=== PATIENT | female | born 1930 | race Caucasian/White ===

== ENCOUNTER 2016-09-13 12:35 | Inpatient (IN) ==
--- NOTE | 2016-09-13 12:47 | Emergency Department Report ---
Asthma HPI - General Stated Complaint: SOA <Mario Arevalo Q - 09/14/16 18:33> Time Seen by Provider: 09/13/16 12:45 <Mario Arevalo - 09/14/16 18:33> Source: patient, EMS <Indy Ramsey - 09/13/16 15:29> - History of Present Illness HPI Narrative: 85-year-old female brought to ER via EMS from [facility] at [facility]. Patient was brought to for SpO2 of 87% per EMS. Patient was started on 4L oxygen per [place] by EMS. O2 was decreased to 2L in ED. Patient states the reason she called EMS is that she stopped taking her warfarin on Tuesday due to a nosebleed. Patient states her INR on Tuesday of last week was 3.9. Patient denies feeling short of air, chest pain nausea or diaphoresis. Patient is in atrial fibrillation with RVR on arrival. Patient denies any history of atrial fibrillation. <Indy Ramsey - 09/14/16 14:10> MD complaint: other (hypoxia) <Indy Ramsey - 09/14/16 14:10> - Related Data Home Medications Medication Instructions Recorded Confirmed Alendronate Sodium 70 mg PO WEEKLY 09/13/16 09/13/16 Diclofenac [Voltaren] 1 applic TOP PRN PRN 09/13/16 09/13/16 Furosemide [Lasix] 20 mg PO AM 09/13/16 09/13/16 Gabapentin 300 mg PO HS 09/13/16 09/13/16 Metoprolol Tartrate [Lopressor] 25 mg PO WB 09/13/16 09/13/16 Potassium Chloride [Klor-Con M20] 20 meq PO DAILY 09/13/16 09/13/16 Warfarin [Coumadin] 2 mg PO NOON 09/13/16 09/13/16 <Mario Arevalo - 09/14/16 18:33> Allergies Allergy/AdvReac Type Severity Reaction Status Date / Time No Known Allergies Allergy Unknown Unverified 09/13/16 17:01 <Mario Arevalo - 09/14/16 18:33> Review of Systems All systems: reviewed and negative except as stated <Indy Ramsey - 15:29> Respiratory: Reports: other (hypoxia and ) <Indy Ramsey - 08/08/17 14:10> PFSH Patient Stated Medical History Cardiac Arrhythmia Yes: A-FIB Congestive Heart Failure Yes Other Musculoskeletal Yes: CHRONIC KNEE PAIN <Mario Arevalo 09/14/16 18:33> Patient Stated Medical History Cardiac Arrhythmia Yes: A-FIB Congestive Heart Failure Yes Other Musculoskeletal Yes: CHRONIC KNEE PAIN Atrial fibrillation Systolic heart failure chronic Essential hypertension 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 Hysterectomy <Indy Ramsey 09/14/16 14 :20> - Social History Smoking status: Former smoker <Indy Ramsey 09/14/16 14:20> Housing: other (independent living) <Indy Ramsey 09/14/16 14:20> Current occupational status: retired <Indy Ramsey 09/14/16 14:20> Physical Exam - Limitations Limitations: no limitations <Indy Ramsey 09/13/16 15:29> - General General appearance: alert, in no apparent distress <Indy Ramsey 15:29> - Normal Exams: Head:: Normocephalic without trauma <Indy Ramsey 09/13/16 15:29> Eyes:: No scleral icterus, irritation <Indy Ramsey 09/13/16 15:29> ENMT:: No facial trauma, nasal exudates, pharyngeal erythema <Indy Ramsey 09/13/16 15:29> Abdomen:: Bowel sounds positive, soft, non-tender, non-distended <Indy Ramsey 09/13/16 15:29> Musculoskeletal:: No tenderness, all extremities <Indy Ramsey 09/14/16 14:20> Neurological:: Patient is alert, and oriented, cranial nerves, motor/sensory/ cerebellar, exams w/o gross deficits, to observation <Indy Ramsey 09/13 15:29> Psychiatric:: Patient exhibits, appropriate attention <Indy Ramsey 08/23 15:29> - Neck Neck exam: Present: trachea midline <Indy Ramsey 09/13/16 15:29> - Respiratory Respiratory exam: Present: other (RR 40 on arrival from EMS) <Indy Ramsey - 09/13/16 16:13> - Expanded Respiratory Exam Location: Left: rales (clear in upper lobes), Right: rales, Lower: rales < Indy Ramsey - 09/14/16 14:20> - Cardiovascular Cardiovascular exam: Present: other (regular-irregular with HR in 130s) < Indy Ramsey - 09/14/16 14:20> Course - Consultations Consultation #1: I discussed patient's HPI, PMH, labs, EKG, CXR, VS, exam findings and treatment in ED with Dr. Robison. Dr. Robison will accept inpatient. <Indy Ramsey - 09/14/16 14:20> Vital Signs Temperature 97.9 F 09/13/16 12:38 Pulse Rate 133 H 09/13/16 12:38 Respiratory Rate 38 H 09/13/16 12:38 Blood Pressure 99/65 09/13/16 12:38 Pulse Oximetry 89 L 09/13/16 12:38 Temperature 96.8 F 09/14/16 16:00 Pulse Rate 90 09/14/16 16:00 Respiratory Rate 18 09/14/16 16:43 Blood Pressure 88/54 09/14/16 16:00 Pulse Oximetry 96 09/14/16 16:43 <Mario Arevalo Q - 09/14/16 18:33> Vital Signs Temperature 97.9 F 09/13/16 12:38 Pulse Rate 133 H 09/13/16 12:38 Respiratory Rate 38 H 09/13/16 12:38 Blood Pressure 99/65 09/13/16 12:38 Pulse Oximetry 89 L 09/13/16 12:38 Temperature 96.8 F 09/14/16 16:00 Pulse Rate 90 09/14/16 16:00 Respiratory Rate 18 09/14/16 16:43 Blood Pressure 88/54 09/14/16 16:00 Pulse Oximetry 96 09/14/16 16:43 <Indy Ramsey Mendez - 09/14/16 14:20> Dyspnea - MDM Narrative Medical decision making narrative: WBC 53.1, lymph 61.5, (hx. of chronic lymphoid leukemia). Potassium 6.6 BUN 82 and creatinine 2.0 (no previous labs to compare) Troponin 0.193 ProBNP 52,100 AST 150 ALT 183 Lactate 2.1 Pro calcitonin 2.91 Patient was given 10mg IV of cardizem due to low BP and heart rate. Patient did have improvement of heart rate with improvement of BP. Patient was treated with seem carbonate, insulin and D50 for hyperkalemia in ER. Patient is admitted to hospitalist service improved for hyperkalemia with multiple abnormal laboratories. <Indy Ramsey - 09/14/16 14:20> - Differential Diagnosis Differential diagnosis: Likely: PE, Pneumonia, Pulmonary edema systolic, Pulmonary edema dystolic <RamseyIndy - 09/13/16 15:42> - Medical Records Attestation: I reviewed the patient's medical records. <Indy Ramsey - 08/23 15:42> PMR sent form Dr. Valles office. <RamseyIndy - 09/13/16 15:42> - Lab Data Attestation: I reviewed the patient's lab results. <Indy Ramsey - 15:11> Result diagrams: 09/14/16 04:39 09/14/16 14:58 <Mario Arevalo Q - 09/14/16 18:33> Lab Results 09/13/16 09/13/16 09/13/16 Range/Units 13:15 13:15 13:16 WBC 53.1 H* (4.5-11.0) T/MM3 RBC 4.01 (4.00-5.20) M/MM3 Hgb 13.5 (12-16) GM/DL Hct 40.5 (36-46) % MCV 101.0 H (80-100) UM3 MCH 33.7 (26-34) UUG MCHC 33.3 (31-37) GM/DL RDW Std Deviation 61.5 H (36.9-50.2) FL Plt Count 346 (130-400) T/MM3 MPV 9.8 (9.4-12.4) UM3 Immature Gran % (Auto) Not performed Neut % (Auto) Not performed Lymph % (Auto) Not performed Sharkey % (Auto) Not performed Eos % (Auto) Not performed Baso % (Auto) Not performed Neut # Not performed Lymph # Not performed Sharkey # Not performed Eos # Not performed Baso # Not performed Abs Immat Gran (auto) Not performed Neutrophils % (Manual) 38.0 (33-66) % Lymphocytes % (Manual) 61.0 H (23-45) % Monocytes % (Manual) 1.0 (0-9.0) % Neutrophils # (Manual) 20.2 H (1.8-7.7) T/MM3 Lymphocytes # (Manual) 32.4 H (1-4.8) T/MM3 Monocytes # (Manual) 0.5 (0-0.8) T/MM3 Smudge Cells 2+ Polychromasia 1+ Poikilocytosis 1+ Anisocytosis 2+ Ovalocytes 1+ Parveen Cells 1+ RBC Morph Comment Abnormal INR (0.99-1.21) Turbidity (0-20) Sodium (134-144) MEQ/L Potassium (3.6-5) MEQ/L Chloride (98-107) MEQ/L Carbon Dioxide (22-30) MEQ/L Anion Gap (5-15) MEQ/L BUN (7-17) MG/DL Creatinine (0.7-1.2) MG/DL GFR Calculation BUN/Creatinine Ratio (6-26) RATIO Glucose (65-110) MG/DL Calculated Osmolality (261-280) MOSM/KG Calcium (8.4-10.2) MG/DL Total Bilirubin (0.20-1.30) MG/DL Icterus Index (0-7) AST (14-36) U/L ALT (9-52) U/L Alkaline Phosphatase (38-126) U/L Troponin I (0-0.12) ng/ml B-Natriuretic Peptide (0-175) pg/mL Total Protein (6.3-8.2) G/DL Albumin (3.5-5.0) G/DL Globulin (2.4-3.6) G/DL Albumin/Globulin Ratio (1.1-2.2) RATIO Plasma Lactate 2.1 (0.6-2.2) MMOL/L Procalcitonin 2.91 H* NG/ML Specimen Hemolysis (0-25) 09/13/16 09/13/16 Range/Units 13:16 13:16 WBC (4.5-11.0) T/MM3 RBC (4.00-5.20) M/MM3 Hgb (12-16) GM/DL Hct (36-46) % MCV (80-100) UM3 MCH (26-34) UUG MCHC (31-37) GM/DL RDW Std Deviation (36.9-50.2) FL Plt Count (130-400) T/MM3 MPV (9.4-12.4) UM3 Immature Gran % (Auto) Neut % (Auto) Lymph % (Auto) Sharkey % (Auto) Eos % (Auto) Baso % (Auto) Neut # Lymph # Sharkey # Eos # Baso # Abs Immat Gran (auto) Neutrophils % (Manual) (33-66) % Lymphocytes % (Manual) (23-45) % Monocytes % (Manual) (0-9.0) % Neutrophils # (Manual) (1.8-7.7) T/MM3 Lymphocytes # (Manual) (1-4.8) T/MM3 Monocytes # (Manual) (0-0.8) T/MM3 Smudge Cells Polychromasia Poikilocytosis Anisocytosis Ovalocytes Parveen Cells RBC Morph Comment INR 2.68 H (0.99-1.21) Turbidity < 20 (0-20) Sodium 143 (134-144) MEQ/L Potassium 6.6 H* (3.6-5) MEQ/L Chloride 104 (98-107) MEQ/L Carbon Dioxide 27 (22-30) MEQ/L Anion Gap 12 (5-15) MEQ/L BUN 82.0 H* (7-17) MG/DL Creatinine 2.0 H (0.7-1.2) MG/DL GFR Calculation 24 BUN/Creatinine Ratio 41 H (6-26) RATIO Glucose 175 H (65-110) MG/DL Calculated Osmolality 304 H (261-280) MOSM/KG Calcium 9.9 (8.4-10.2) MG/DL Total Bilirubin 0.90 (0.20-1.30) MG/DL Icterus Index < 2 (0-7) AST 150 H (14-36) U/L ALT 183 H (9-52) U/L Alkaline Phosphatase 182 H (38-126) U/L Troponin I 0.193 H (0-0.12) ng/ml B-Natriuretic Peptide 31157 H (0-175) pg/mL Total Protein 6.5 (6.3-8.2) G/DL Albumin 3.9 (3.5-5.0) G/DL Globulin 2.6 (2.4-3.6) G/DL Albumin/Globulin Ratio 1.5 (1.1-2.2) RATIO Plasma Lactate (0.6-2.2) MMOL/L Procalcitonin NG/ML Specimen Hemolysis < 15 (0-25) <Mario Arevalo Q - 09/14/16 18:33> Lab Results 09/13/16 09/13/16 09/13/16 Range/Units 13:15 13:15 13:16 WBC 53.1 H* (4.5-11.0) T/MM3 RBC 4.01 (4.00-5.20) M/MM3 Hgb 13.5 (12-16) GM/DL Hct 40.5 (36-46) % MCV 101.0 H (80-100) UM3 MCH 33.7 (26-34) UUG MCHC 33.3 (31-37) GM/DL RDW Std Deviation 61.5 H (36.9-50.2) FL Plt Count 346 (130-400) T/MM3 MPV 9.8 (9.4-12.4) UM3 Immature Gran % (Auto) Not performed Neut % (Auto) Not performed Lymph % (Auto) Not performed Sharkey % (Auto) Not performed Eos % (Auto) Not performed Baso % (Auto) Not performed Neut # Not performed Lymph # Not performed Sharkey # Not performed Eos # Not performed Baso # Not performed Abs Immat Gran (auto) Not performed Neutrophils % (Manual) 38.0 (33-66) % Lymphocytes % (Manual) 61.0 H (23-45) % Monocytes % (Manual) 1.0 (0-9.0) % Neutrophils # (Manual) 20.2 H (1.8-7.7) T/MM3 Lymphocytes # (Manual) 32.4 H (1-4.8) T/MM3 Monocytes # (Manual) 0.5 (0-0.8) T/MM3 Smudge Cells 2+ Polychromasia 1+ Poikilocytosis 1+ Anisocytosis 2+ Ovalocytes 1+ Parveen Cells 1+ RBC Morph Comment Abnormal INR (0.99-1.21) Turbidity (0-20) Sodium (134-144) MEQ/L Potassium (3.6-5) MEQ/L Chloride (98-107) MEQ/L Carbon Dioxide (22-30) MEQ/L Anion Gap (5-15) MEQ/L BUN (7-17) MG/DL Creatinine (0.7-1.2) MG/DL GFR Calculation BUN/Creatinine Ratio (6-26) RATIO Glucose (65-110) MG/DL Calculated Osmolality (261-280) MOSM/KG Calcium (8.4-10.2) MG/DL Total Bilirubin (0.20-1.30) MG/DL Icterus Index (0-7) AST (14-36) U/L ALT (9-52) U/L Alkaline Phosphatase (38-126) U/L Troponin I (0-0.12) ng/ml B-Natriuretic Peptide (0-175) pg/mL Total Protein (6.3-8.2) G/DL Albumin (3.5-5.0) G/DL Globulin (2.4-3.6) G/DL Albumin/Globulin Ratio (1.1-2.2) RATIO Plasma Lactate 2.1 (0.6-2.2) MMOL/L Procalcitonin 2.91 H* NG/ML Specimen Hemolysis (0-25) 09/13/16 09/13/16 Range/Units 13:16 13:16 WBC (4.5-11.0) T/MM3 RBC (4.00-5.20) M/MM3 Hgb (12-16) GM/DL Hct (36-46) % MCV (80-100) UM3 MCH (26-34) UUG MCHC (31-37) GM/DL RDW Std Deviation (36.9-50.2) FL Plt Count (130-400) T/MM3 MPV (9.4-12.4) UM3 Immature Gran % (Auto) Neut % (Auto) Lymph % (Auto) Sharkey % (Auto) Eos % (Auto) Baso % (Auto) Neut # Lymph # Sharkey # Eos # Baso # Abs Immat Gran (auto) Neutrophils % (Manual) (33-66) % Lymphocytes % (Manual) (23-45) % Monocytes % (Manual) (0-9.0) % Neutrophils # (Manual) (1.8-7.7) T/MM3 Lymphocytes # (Manual) (1-4.8) T/MM3 Monocytes # (Manual) (0-0.8) T/MM3 Smudge Cells Polychromasia Poikilocytosis Anisocytosis Ovalocytes [place] Cells RBC Morph Comment INR 2.68 H (0.99-1.21) Turbidity < 20 (0-20) Sodium 143 (134-144) MEQ/L Potassium 6.6 H* (3.6-5) MEQ/L Chloride 104 (98-107) MEQ/L Carbon Dioxide 27 (22-30) MEQ/L Anion Gap 12 (5-15) MEQ/L BUN 82.0 H* (7-17) MG/DL Creatinine 2.0 H (0.7-1.2) MG/DL GFR Calculation 24 BUN/Creatinine Ratio 41 H (6-26) RATIO Glucose 175 H (65-110) MG/DL Calculated Osmolality 304 H (261-280) MOSM/KG Calcium 9.9 (8.4-10.2) MG/DL Total Bilirubin 0.90 (0.20-1.30) MG/DL Icterus Index < 2 (0-7) AST 150 H (14-36) U/L ALT 183 H (9-52) U/L Alkaline Phosphatase 182 H (38-126) U/L Troponin I 0.193 H (0-0.12) ng/ml B-Natriuretic Peptide 36401 H (0-175) pg/mL Total Protein 6.5 (6.3-8.2) G/DL Albumin 3.9 (3.5-5.0) G/DL Globulin 2.6 (2.4-3.6) G/DL Albumin/Globulin Ratio 1.5 (1.1-2.2) RATIO Plasma Lactate (0.6-2.2) MMOL/L Procalcitonin NG/ML Specimen Hemolysis < 15 (0-25) <Indy Ramsey 09/13/16 15:11> - Radiology Data Attestation: I reviewed the patient's radiology results. <Indy Ramsey 09/13/16 15:11> 1. Mild cardiomegaly and question of pulmonary vascular congestion. 2. Small right pleural effusion with subjacent atelectasis or infiltrates. Follow-up is recommended. Dr. Ordoñez <Indy Ramsey 09/13/16 15:11> - EKG Data EKG #1 EKG attestation: Yes: I reviewed and interpreted this EKG. <Mario Arevalo - 09/14/16 18:33> Yes: I reviewed and interpreted this EKG. <Indy Ramsey - 09/13/16 15:42> EKG results narrative: Atrial fibrillation with RVR with rate of 138 bpm, No STEMI (Dr. Arevalo) <Indy Ramsey 09/13/16 15:42> Rate [ED.COU.EKR]: tachycardia <Mario Arevalo Q - 09/14/16 18:33> Rhythm: A.Fib <Mario Arevalo Q - 09/14/16 18:33> [place]/QRS: normal <Mario Arevalo 09/14/16 18:33> Interpretation: no acute changes <Mario Arevalo Q - 09/14/16 18:33> Disposition Clinical Impression: Hyperkalemia, Hypoxia <Mario Arevalo 09/14/16 18:33> Disposition: 02 To [facility] [place] <Mario Arevalo Q - 09/14/16 18:33> Condition: Stable <Mario Arevalo Q - 09/14/16 18:33> Prescriptions: No Action Furosemide [Lasix] 20 mg PO AM Potassium Chloride [Klor-Con M20] 20 meq PO DAILY Alendronate Sodium 70 mg PO WEEKLY Gabapentin 300 mg PO HS Metoprolol Tartrate [Lopressor] 25 mg PO WB Warfarin [Coumadin] 2 mg PO NOON Diclofenac [Voltaren] 1 applic TOP PRN PRN PRN Reason: Arthritis <Mario Arevalo - 09/14/16 18:33> - Seen By: midlevel <Indy Ramsey - 09/14/16 14:20>
[2016-09-13] MEDS ORDERED: NS 1,000 ML IV ONE (13:23)
[2016-09-13] MEDS ORDERED: DiltiaZEM 25 MG/5 ML INJECTION IVP ONE (13:26)
[2016-09-13] MEDS ORDERED: CALCIUM GLUCONATE 1,000 MG in NS 50 ML IV ONE (13:49)
[2016-09-13] MEDS ORDERED: DEXTROSE 50% SYRINGE 50ml (1 AMP) IVP ONE (13:49)
[2016-09-13] MEDS ORDERED: INSULIN REGULAR, HUMAN 100 UNIT/ML INJECTION IVP ONE (13:49)
--- NOTE | 2016-09-13 15:02 | XRay Report ---
LOCATION OF DICTATION: [place] EXAM: XR chest 2V HISTORY: hypoxia COMPARISON: No prior studies available for comparison. FINDINGS: The heart is mildly enlarged. There is some prominence the central portal vasculature. Moderate size right pleural effusion with subjacent atelectasis or infiltrates. Left lung is clear. There is no pneumothorax. Mild spondylosis of the thoracic spine. Impression: 1. Mild cardiomegaly and question of pulmonary vascular congestion. 2. Small right pleural effusion with subjacent atelectasis or infiltrates. Follow-up is recommended. .
[2016-09-13] MEDS ORDERED: ONDANSETRON 4 MG/2 ML INJECTION IVP PRN (16:01)
[2016-09-13 16:03] VITALS: BMI 15.6
[2016-09-13] MEDS ORDERED: FUROSEMIDE 20 MG/2 ML INJECTION IVP ONE ×2 (16:45→22:15)
--- NOTE | 2016-09-13 16:52 | History & Physical Report ---
<Delilah Jackson V - Last Filed: 09/13/16 16:48> History of Present Illness Date: 09/13/16 Chief complaint: Hyperkalemia, hypoxia, elevated trop HPI: Patient is an 85-year-old female who resides independently at [facility] under the care of Dr. Leonidas Mathew. Patient reports that she had an INR done last Tuesday that was elevated at 3.9. She reports on Tuesday. She had a nosebleed and also coughed up some blood, so she stopped taking her Coumadin. Today she contacted EMS and requested to come to the hospital for evaluation to get her "INR fixed". Upon EMS arrival, she was found to be hypoxic with room air saturations of 87%. She has continued to require oxygen to maintain adequate saturations. In the emergency room today. Further evaluation was obtained. She was found to be hyperkalemic with a potassium of 6.6. Sodium is 143, BUN 82, creatinine 2.0. LFTs are elevated. AST 150, ALT 183 , alkaline phosphatase 1.82. Troponin is found to be elevated at 0.193, and proBNP is 52,100. Her venous lactate is 2.1, pro calcitonin of 2.91. White count is elevated at 53. 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 Hemoglobin is stable at 13.3, hematocrit 40.5 and platelet count 347. INR is 2.68. Twelve- lead EKG does reveal atrial fibrillation with RVR initial rate in the 130s. A chest x-ray was obtained showing mild cardiomegaly with a right moderate pleural effusion with possible infiltrates. Given findings of hyperkalemia, accompanied with elevated troponin and hypoxia. The hospitalist services were contacted and accepted patient for inpatient admission for further evaluation and treatment. It is expected that her stay will be greater than 2 overnights. Review of Systems Comprehensive ROS: completed and no additional positive findings except those as stated - Constitutional Constitutional: Present: fatigue - Cardiovascular Cardiovascular: Present: edema - Respiratory Respiratory: Present: as per HPI, dyspnea, dyspnea on exertion PFSH Patient Stated Medical History Chronic atrial fibrillation. 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 Hysterectomy Family History: Patient is adopted - Social History Smoking status: Former smoker Substance use type: does not use Alcohol intake frequency: does not drink Housing: assisted living facility ([facility]) Current residence: Independent Living ([facility]) Social history: PCP, Dr. Leonidas Mathew at [facility] and [facility] Medications Home Medications Medication Instructions Recorded Confirmed Type Alendronate Sodium 70 mg PO WEEKLY 09/13/16 09/13/16 History Diclofenac [Voltaren] 1 applic TOP PRN PRN 09/13/16 09/13/16 History Furosemide [Lasix] 20 mg PO AM 09/13/16 09/13/16 History Gabapentin 300 mg PO HS 09/13/16 09/13/16 History Metoprolol Tartrate [Lopressor] 25 mg PO WB 09/13/16 09/13/16 History Potassium Chloride [Klor-Con M20] 20 meq PO DAILY 09/13/16 09/13/16 History Warfarin [Coumadin] 2 mg PO NOON 09/13/16 09/13/16 History Allergies Allergy/AdvReac Type Severity Reaction Status Date / Time No Known Allergies Allergy Unknown Unverified 09/13/16 17:01 Exam Vital Signs: Temperature 97.9 F 09/13/16 12:38 Pulse Rate 74 09/13/16 14:30 Respiratory Rate 18 09/13/16 13:45 Blood Pressure 99/68 09/13/16 14:15 Pulse Oximetry 94 09/13/16 14:30 Height: 1.55 m Weight: 37.5 kg Body Mass Index: 15.6 - Constitutional Present: no acute distress, well nourished, well developed - Routine HEENT Exam Eye: Present: EOMI ENT: Present: mucous membranes moist, dentition normal - Routine Respiratory Exam Present: wheezes, crackles - Routine Cardiovascular Exam Present: RRR, S1, S2, irregular rhythm. Absent: murmur - Routine Abdominal Exam Present: soft, normoactive bowel sounds, non distended. Absent: tenderness - Routine Extremities Exam Present: normal capillary refill - Routine Back/Spine/Pelvis Exam Comments: Chronic back pain - Routine Skin Exam Present: intact, dry, warm - Routine Neurological Exam Present: alert, oriented X3, CN II-XII intact - Routine Psychiatric Exam Present: normal affect, normal thought process Results - Labs CBC & Chem 7: 09/13/16 13:16 09/13/16 13:16 Assessment and Plan (1) Hypernatremia Current visit: Yes Status: Acute Assessment and Plan: Impression Hypernatremia Respiratory failure with hypoxia Elevated troponin Elevated LFTs Leukocytosis-etiology- Infection versus CLL Chronic atrial fibrillation Systolic heart failure Chronic anticoagulation Osteoporosis with chronic back pain hypertension Plan Will admit patient as a inpatient under the care of Enriqueta for hyperkalemia, elevated troponin, elevated LFTs, respiratory failure with hypoxemia Patient was treated for acute hyperkalemia in the emergency room including calcium gluconate, 1 amp of dextrose followed by 10 units of regular insulin. We will recheck a serum potassium and basic metabolic at 1800 today. Monitor patient on cardiac telemetry. Initial rate was atrial fibrillation RVR in the 130s. Patient was given Cardizem 10 milligrams IV 1 and is now in the 80s. Given elevated troponin. We will recheck serial troponins 3. Did review clinic notes from Dr. mathew. Office visit from 09/08/16 revealed that patient was on 40 of Lasix in the morning and 20 milligrams of Lasix at noon, however reconciled medications today indicate patient only takes 40 milligrams daily. Will give patient 20 grams of IV Lasix 1 now to help motivate fluid. Will reevaluate this following next chemistry panel. It appears the patient does have a history of systolic heart failure. Given increased oxygen demands. Will obtain an echocardiogram. Given hypoxia, leukocytosis and questionable infiltrate. Will cover patient with empirical antibiotics, Rocephin 1 gram IV started now. SCDs to bilateral lower extremity for DVT prophylaxis Patient does request to be a do not resuscitate and this order is written. Will discuss further orders and plan of care with attending, Dr. Robison. At time of discharge medical care will return to primary care provider, Dr. Leonidas Mathew Hospital Course Summary Disclaimer: The visit summary below is not to be considered part of the above Progress Note. Hospital Course: 09/13/16-admission Impression Hypernatremia Respiratory failure with hypoxia Elevated troponin Elevated LFTs Leukocytosis-etiology- Infection versus CLL Chronic atrial fibrillation Systolic heart failure Chronic anticoagulation Osteoporosis with chronic back pain hypertension Plan Will admit patient as a inpatient under the care of Enriqueta for hyperkalemia, elevated troponin, elevated LFTs, respiratory failure with hypoxemia Patient was treated for acute hyperkalemia in the emergency room including calcium gluconate, 1 amp of dextrose followed by 10 units of regular insulin. We will recheck a serum potassium and basic metabolic at 1800 today. Monitor patient on cardiac telemetry. Initial rate was atrial fibrillation RVR in the 130s. Patient was given Cardizem 10 milligrams IV 1 and is now in the 80s. Given elevated troponin. We will recheck serial troponins 3. Did review clinic notes from Dr. mathew. Office visit from 09/08/16 revealed that patient was on 40 of Lasix in the morning and 20 milligrams of Lasix at noon, however reconciled medications today indicate patient only takes 40 milligrams daily. Will give patient 20 grams of IV Lasix 1 now to help motivate fluid. Will reevaluate this following next chemistry panel. It appears the patient does have a history of systolic heart failure. Given increased oxygen demands. Will obtain an echocardiogram. Given hypoxia, leukocytosis and questionable infiltrate. Will cover patient with empirical antibiotics, Rocephin 1 gram IV started now. SCDs to bilateral lower extremity for DVT prophylaxis Patient does request to be a do not resuscitate and this order is written. Will discuss further orders and plan of care with attending, Dr. Robison. At time of discharge medical care will return to primary care provider, Dr. 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 Other Musculoskeletal Yes: CHRONIC KNEE PAIN Shingles Yes Exam Vital Signs: Temperature 98.5 F 09/13/16 16:48 Pulse Rate 84 09/13/16 16:48 Respiratory Rate 20 09/13/16 16:48 Blood Pressure 107/66 09/13/16 16:48 Pulse Oximetry 94 09/13/16 16:48 Oxygen Delivery Method Nasal Cannula Oxygen Flow Rate 2 Height: 1.55 m Weight: 37.5 kg Results - Labs CBC & Chem 7: 09/13/16 13:16 09/13/16 18:09 Assessment and Plan (1) Hyperkalemia Problem details: POA Current visit: Yes Status: Acute DVT Prophylaxis: SCD's, Coumadin Resuscitation Status: Do Not Resuscitate Assessment and Plan: Have independently interviewed and examined pt. Chart reviewed. Case discussed with ED provider and my LABEL STAMPER. Care plan developed with my supervision; agree with above. 85 y/o WF presents to ED secondary to shortness of breath. Notes some cough and congestion-occasionally will have sputum, but hard to mobilize. Denies pain with breathing or chest pressure/palpitations. No nausea or ab pain. Main complaint at my examination is that she is very thirsty-not had anything to eat/ drink since presenting to ED. Lungs: decreased, crackles bilaterally. CV: irregular and rapid. AB: soft nt/nd MSE: awake alert Impression Hyperkalemia Respiratory failure with hypoxia Elevated troponin Elevated LFTs Leukocytosis-etiology- Infection versus CLL Chronic atrial fibrillation - rapid rate in ED. Systolic heart failure Chronic anticoagulation CLL Osteoporosis with chronic back pain Hypertension Underweight Plan: Inpatient admission for treatment of Hyperkalemia, stabilization or heart rate, and further cardiac treatment and evaluation. Rocephin to cover potential pulmonary pathogens. Acapella to help loosen secretions. Supplemental O2 to help respiratory status. Hold oral potassium - monitor potassium level. Monitor INR due to Coumadin use. Low flow fluids due to elevated lactate. Huerta to monitor urine output. Will repeat Lasix later this evening to help waste potassium. Hospital Course Summary Disclaimer: The visit summary below is not to be considered part of the above Progress Note.
[2016-09-13] MEDS: NS 1,000 ML IV SCH (17:36)
[2016-09-13] MEDS ORDERED: WARFARIN 2 MG TABLET PO ONE (17:45)
--- NOTE | 2016-09-13 17:52 | Pharmacy Consult ---
Pharmacy Consult-Warfarin - Consult Information COUMADIN CONSULT (Initial): Dx: Shannon STEWART. Baseline INR = 2.68. Will give Warfarin 2mg today. Will continue to monitor and make adjustments accordingly. Thank you.
[2016-09-13] MEDS ORDERED: METOPROLOL 5mg/5ml INJECTION IVP ONE (18:59)
[2016-09-13] MEDS: CEFTRIAXONE 1 G in NS 100 ML IV SCH (19:02)
[2016-09-13] MEDS ORDERED: METOPROLOL 5mg/5ml INJECTION IVP PRN (19:17)
[2016-09-13] MEDS: ACETAMINOPHEN 325 MG TABLET PO PRN (19:52)
[2016-09-13] MEDS: DICLOFENAC 1% TOP GEL 100gm TP PRN (19:53)
[2016-09-13] MEDS: GABAPENTIN 300 MG CAPSULE PO SCH ×2 (20:37→22:05)
[2016-09-14] MEDS ORDERED: SALINE FLUSH 10ml SYRINGE IV PRN (01:51)
[2016-09-14] MEDS ORDERED: WARFARIN 1 MG TABLET PO SCH ×2 (07:30→12:00)
--- NOTE | 2016-09-14 07:36 | Pharmacy Consult ---
Pharmacy Consult-Warfarin - Laboratory Information 09/14/16 04:39 INR 2.98 H COUMADIN CONSULT: Patient has a history of Atrial Fibrillation. Date INR Dose 09/13 2.68 2 mg 10/15 2.98 Plan 1 mg The patient is currently on Rocephin 1 g iv every 24 hours. Rocephin can elevate the INR. With a jump from 2.68 to 2.98, I will give Warfarin 1 mg today. The Pharmacy will continue to monitor & make adjustments accordingly. Thank you for the Protocol, Luke Nguyen RPh.
[2016-09-14] MEDS: FUROSEMIDE 20 MG/2 ML INJECTION IVP SCH ×3 (08:47→16:26)
--- NOTE | 2016-09-14 10:04 | Progress Note ---
<Delilah Jakcson V - Last Filed: 09/14/16 09:59> Subjective: Josefina is seen this morning in follow up. She is drowsy and states she is fatigued. She continues to be on 2 liters of oxygen by nasal canula to maintain saturations. She has course crackles bilaterally. Complains of having chronic back pain which made it difficulty to sleep. Potassium remains elevated. Objective Vital signs: Temperature 93.7 F L 09/14/16 08:10 Pulse Rate 103 H 09/14/16 08:34 Respiratory Rate 12 09/14/16 08:10 Blood Pressure 99/54 09/14/16 08:10 Pulse Oximetry 95 09/14/16 08:10 Oxygen Delivery Method Nasal Cannula Oxygen Flow Rate 2 Weight: 39.5 kg - Constitutional Present: mild distress, well nourished, well developed - Routine HEENT Exam Head: Present: normocephalic Eye: Present: EOMI, PERRL ENT: Present: mucous membranes moist, dentition normal - Routine Respiratory Exam Present: crackles (course ) - Routine Cardiovascular Exam Present: RRR, S1, S2. Absent: murmur - Routine Abdominal Exam Present: soft, normoactive bowel sounds, non distended. Absent: tenderness - Routine Extremities Exam Present: full ROM, normal capillary refill - Routine Back/Spine/Pelvis Exam Back/Spine: Present: full ROM - Routine Skin Exam Present: intact, dry, warm - Routine Neurological Exam Present: alert, oriented X3, CN II-XII intact - Routine Lymphatic Exam Lymphatic: Absent: adenopathy - Routine Psychiatric Exam Present: normal affect, normal thought process Results - Labs CBC & Chem 7: 09/14/16 04:39 09/14/16 04:39 Assessment and Plan (1) Hyperkalemia Problem details: POA Current visit: Yes Status: Acute Assessment and Plan: 09/14/16 Will add scheduled lasix 20 mg IV every 8 hours starting this morning. Use caution and monitor carefully, measure I/O Continue to follow Hyperkalemia, Potassium this morning remains elevated at 6.2. Will recheck BMP at 1500. Continue with Rocephin for pulmonary coverage. Leukocytosis is trending down. Suspect some elevation may be chronic from CLL Will add Duoneb QID and encourage acapella. Wean down oxygen as able Coumadin as per pharmacy protocol Once Josefina is stronger may add PT/OT consults. Continue to follow routine CBC and CMP Sepsis Assessment - Evaluation Sepsis screening result: No Definite Risk Hospital Course Summary Disclaimer: The visit summary below is not to be considered part of the above Progress Note. Hospital Course: 09/13/16-admission Impression Hypernatremia Respiratory failure with hypoxia Elevated troponin Elevated LFTs Leukocytosis-etiology- Infection versus CLL Chronic atrial fibrillation Systolic heart failure Chronic anticoagulation Osteoporosis with chronic back pain hypertension Plan Will admit patient as a inpatient under the care of Enriqueta for hyperkalemia, elevated troponin, elevated LFTs, respiratory failure with hypoxemia Patient was treated for acute hyperkalemia in the emergency room including calcium gluconate, 1 amp of dextrose followed by 10 units of regular insulin. We will recheck a serum potassium and basic metabolic at 1800 today. Monitor patient on cardiac telemetry. Initial rate was atrial fibrillation RVR in the 130s. Patient was given Cardizem 10 milligrams IV 1 and is now in the 80s. Given elevated troponin. We will recheck serial troponins 3. Did review clinic notes from Dr. mathew. Office visit from 09/08/16 revealed that patient was on 40 of Lasix in the morning and 20 milligrams of Lasix at noon, however reconciled medications today indicate patient only takes 40 milligrams daily. Will give patient 20 grams of IV Lasix 1 now to help motivate fluid. Will reevaluate this following next chemistry panel. It appears the patient does have a history of systolic heart failure. Given increased oxygen demands. Will obtain an echocardiogram. Given hypoxia, leukocytosis and questionable infiltrate. Will cover patient with empirical antibiotics, Rocephin 1 gram IV started now. SCDs to bilateral lower extremity for DVT prophylaxis Patient does request to be a do not resuscitate and this order is written. Will discuss further orders and plan of care with attending, Dr. Robison. At time of discharge medical care will return to primary care provider, Dr. Leonidas Mathew 09/14/16 Add scheduled Lasix 20 mg IV every 8 hours as well as scheduled Duoneb tx. Continue to follow potassium and Leukocytosis. <Jose David Robison - Last Filed: 09/14/16 15:53> Objective Vital signs: Temperature 93.7 F L 09/14/16 08:10 Pulse Rate 100 09/14/16 15:30 Respiratory Rate 12 09/14/16 08:10 Blood Pressure 99/54 09/14/16 08:10 Pulse Oximetry 95 09/14/16 08:10 Oxygen Delivery Method Nasal Cannula Oxygen Flow Rate 2 Results - Labs CBC & Chem 7: 09/14/16 04:39 09/14/16 14:58 Assessment and Plan (1) Hyperkalemia Problem details: POA Current visit: Yes Status: Acute DVT Prophylaxis: SCD's, Coumadin Resuscitation Status: Do Not Resuscitate Assessment and Plan: Have independently interviewed and examined pt. Chart reviewed. Case discussed with CM and my DUSTING AND BRUSHING MACHINE OPERATOR. Care plan developed with my supervision; agree with above. Feeling rough this afternoon secondary to loose stool from Kayexelate-no nausea or ab pain. Notes decrease appetite-not feeling hungry. Breathing feels about the same, not really congested or SOA. No pain with breathing. No chest pressure or palpitations. Does feel very weak in general. Lungs: decreased, diminished air movement. CV: irregularly irregular AB: soft nt/nd +BS MSE: awake alert GEN: looks less tired and weak than yesterday Plan: Recheck potassium showing decrease to 5.8. Will continue IV Lasix-IVF stopped. Continue Rocephin, neb treatments, and acapella along with supplemental O2. Monitor lab. Possible PT/OT tomorrow. Hospital Course Summary Disclaimer: The visit summary below is not to be considered part of the above Progress Note.
[2016-09-14] MEDS: ACETAMINOPHEN 325 MG TABLET PO PRN (11:09)
[2016-09-14] MEDS ORDERED: SODIUM POLYSTYRENE SULFONATE 15 GM/60 ML BOTTLE PO ONE (11:35)
[2016-09-14] MEDS: NS 1,000 ML IV SCH (12:08)
[2016-09-14] MEDS: HYDROCODONE/APAP 5mg/325mg TABLET PO PRN (13:29)
[2016-09-14] MEDS: ALBUTEROL/IPRATROPIUM 2.5mg-0.5mg/3ml NEB AEROSOL SCH ×3 (13:46→19:45)
[2016-09-14] MEDS ORDERED: INSULIN REGULAR, HUMAN 100 UNIT/ML INJECTION SQ ONE (15:35)
--- NOTE | 2016-09-14 16:07 | Echocardiogram ---
DATE OF PROCEDURE September 13, 2016 REFERRING PHYSICIAN Jose David Robison MD This is a two-dimensional echo with spectral Doppler, color-flow and M-mode. It was obtained in a patient with hypoxia. Left atrium is markedly dilated. Left ventricle end-diastolic dimension is normal. Left ventricle wall thickness is normal. LV systolic function is at the lower limits of normal with ejection fraction of about 50-55%. Right atrium is dilated. Right ventricle is dilated. Aortic root dimension is normal. Mitral annulus is calcified. Mitral valve leaflets are heavily calcified and appear to be stenotic with a mean gradient of 11 across the mitral valve. Moderate mitral regurgitation is present. Aortic valve shows fibrocalcific changes. By Doppler studies, the patient appears to have aortic stenosis with a valve area of 1.0 cm2. However, 2-D images appear to show adequate opening of the leaflets. Mild aortic insufficiency is present. Tricuspid valve shows moderate tricuspid regurgitation with moderate to severe pulmonary hypertension with estimated pulmonary artery systolic pressure of 68. Pulmonary valve shows moderate pulmonary insufficiency. There is no pericardial effusion. Inferior vena cava is dilated, suggestive of elevated central venous pressure. Interventricular septum appears to be flat suggestive of volume overload. IMPRESSION 1. Biatrial dilation. 2. Right ventricular dilation. 3. LV function at the lower limits of normal with ejection fraction of about 50 -55%. 4. Mitral sclerosis versus stenosis with mean gradient of 11 with moderate mitral regurgitation. 5. Aortic stenosis versus aortic sclerosis with a valve area of 1.0 cm2 by Doppler studies, but 2-D images appear to show adequate opening of the leaflets. 6. Mild aortic insufficiency. 7. Moderate tricuspid regurgitation with moderate to severe pulmonary hypertension with estimated pulmonary artery systolic pressure of 68. 8. Moderate pulmonary insufficiency. 9. Abnormal inferior vena cava suggestive of elevated central venous pressure. MTDD
[2016-09-14] MEDS: CEFTRIAXONE 1 G in NS 100 ML IV SCH (16:26)
[2016-09-14] MEDS: GABAPENTIN 300 MG CAPSULE PO SCH (22:22)
[2016-09-15] MEDS: FUROSEMIDE 20 MG/2 ML INJECTION IVP SCH (01:10)
[2016-09-15] MEDS: ALBUTEROL/IPRATROPIUM 2.5mg-0.5mg/3ml NEB AEROSOL SCH ×4 (07:21→19:54)
--- NOTE | 2016-09-15 07:42 | Pharmacy Consult ---
Pharmacy Consult-Warfarin - Laboratory Information 09/14/16 09/15/16 04:39 04:53 INR 2.98 H 4.09 H - Consult Information COUMADIN CONSULT (Recurring): Today's INR = 4.09. Will give NO Warfarin today. Will continue to monitor & make adjustments accordingly. Thank you.
--- NOTE | 2016-09-15 14:43 | Progress Note ---
<Anita Farris - Last Filed: 09/15/16 14:40> Subjective: Josefina is feeling about the same. Still extremely weak, not sure if she wants to or will be able to work with PT. She isn't sure if edema is improving. She denies SOA currently, no chest pain. Denies abdominal pain. Appetite is suppressed. She has a bit of flat/depressed affect - ie when I couldn't get the TV remote to work [so she could watch her show at 3 pm], she commented "story of my life", and explained that "nothing ever goes right". Objective Vital signs: Temperature 96.4 F L 09/15/16 07:46 Pulse Rate 112 H 09/15/16 07:46 Respiratory Rate 16 09/15/16 11:33 Blood Pressure 97/63 09/15/16 07:46 Pulse Oximetry 95 09/15/16 11:33 Oxygen Delivery Method Nasal Cannula Oxygen Flow Rate 3 Rhythm: Atrial Fibrillation with RVR Weight: 41 kg - Constitutional Present: no acute distress, well nourished, well developed, thin - Routine HEENT Exam Eye: Absent: conjunctival icterus, scleral injection ENT: Present: mucous membranes moist - Routine Respiratory Exam Present: decreased breath sounds, rales - Routine Cardiovascular Exam Present: S1, S2, irregularly irregular - Routine Abdominal Exam Present: soft, normoactive bowel sounds - Routine Exam Comments: Huerta to DD - Routine Extremities Exam Present: pulses intact Comments: swelling to both upper arms (dependent), mild edema to proximal legs - Routine Skin Exam Present: dry, pallor, warm - Routine Neurological Exam Present: alert, oriented X3, CN II-XII intact (grossly), hearing grossly intact , normal speech. Absent: altered mental status - Routine Psychiatric Exam Present: normal thought process, cooperative. Absent: normal affect (flat) Results - Labs CBC & Chem 7: 09/15/16 04:53 09/15/16 04:53 Assessment and Plan (1) Hyperkalemia Problem details: POA Current visit: Yes Status: Acute DVT Prophylaxis: Coumadin Resuscitation Status: Do Not Resuscitate Assessment and Plan: ASSESSMENT Acute on chronic systolic CHF Hyperkalemia, POA - resolved Hypernatremia, POA Respiratory failure with hypoxia - non-oxygen dependent at [facility] Hypotension (underlying hx of HTN) Elevated troponin, suspect secondary to CHF Uremia, underlying CKD stage III Elevated LFTs - on 07/14/16, AST was 36, ALT 34, Alk Phos 74 Jmxvzwmeviul-zikafyed-Nrhzhqlns versus CLL. Last WBC was 24.5 on 07/14/16. Elevated procalcitonin and elevated lactate Macrocytic anemia Chronic atrial fibrillation, on Coumadin - INR supratherapeutic CLL - sees Dr. Graham Patten Osteoporosis with chronic back pain PLAN Acute on Chronic CHF, systolic; a-fib with RVR; respiratory failure with hypoxia ; elevated BUN with underlying CKD -echo ordered. Called [facility] - she does not have a nuclear medical technologist ; no echo on record. -pt continues to be hypotensive and diuretics were discontinued on 09/15/16. Received NS 1L 09/15/16 yet BUN continues to climb. Cr. stable, slightly improved at 1.6. Reassess CMP in am. -weight is trending up, and she has poor urinary output (measured via Huerta) -suspect elevated trop is secondary to CHF rather than acute SD - EKG reviewed showing a-fib with RBBB, no acute ST segment changes. Plus, BNP was markedly elevated on admit (52K) . LFT elevation support possibility of liver congestion d/t CHF. -repeat CXR in am. -HR ranges between 80s-119 over last 48 hours. She's on metoprolol tartrate 25 mg daily. -wean oxygen as able - per Dr. Mathew's office, she was not on oxygen at [facility]. -Dr. Casey consulted; discussed with Sheree Bowling APRN -INR supratherapeutic today at 4.09 - Coumadin held. Leukocytosis, elevated lactate, elevated procalcitonin -Leukocytosis is trending down. Per Dr. Mathew's office, last WBC was 24.5 on . Oncologist is Dr. Patten. Differential shows predominance of lymphocytes, as expected with hx of CLL. -Lactate actually increased on repeat, PCT also >0.5, indicative of bacterial etiology yet no source has been identified - possible right infiltrates on CXR. -Repeat lactate and procalcitonin now and obtain blood cultures x2 (with CLL she is immunocompromised). Repeat UA (bacteruria noted on admit UA) and culture. Electrolyte abnormalities -K down to 5.0 -Na slightly high, stable at 145 -Ca++ normal Elevated TSH -suspect r/t recent illness [sick euthyroid[, but will check free T3 since she' s had fatigue and a-fib with RVR -f/u in outpt setting Macrocytic anemia -B12 and folate were both high Myopathy -consult PT/OT Sepsis Assessment - Evaluation Sepsis screening result: Severe Sepsis Risk Hospital Course Summary Disclaimer: The visit summary below is not to be considered part of the above Progress Note. Hospital Course: 09/13/16-admission Impression Hypernatremia Respiratory failure with hypoxia Elevated troponin Elevated LFTs Leukocytosis-etiology- Infection versus CLL Chronic atrial fibrillation Systolic heart failure Chronic anticoagulation Osteoporosis with chronic back pain hypertension Plan Will admit patient as a inpatient under the care of Enriqueta for hyperkalemia, elevated troponin, elevated LFTs, respiratory failure with hypoxemia Patient was treated for acute hyperkalemia in the emergency room including calcium gluconate, 1 amp of dextrose followed by 10 units of regular insulin. We will recheck a serum potassium and basic metabolic at 1800 today. Monitor patient on cardiac telemetry. Initial rate was atrial fibrillation RVR in the 130s. Patient was given Cardizem 10 milligrams IV 1 and is now in the 80s. Given elevated troponin. We will recheck serial troponins 3. Did review clinic notes from Dr. mathew. Office visit from 09/08/16 revealed that patient was on 40 of Lasix in the morning and 20 milligrams of Lasix at noon, however reconciled medications today indicate patient only takes 40 milligrams daily. Will give patient 20 grams of IV Lasix 1 now to help motivate fluid. Will reevaluate this following next chemistry panel. It appears the patient does have a history of systolic heart failure. Given increased oxygen demands. Will obtain an echocardiogram. Given hypoxia, leukocytosis and questionable infiltrate. Will cover patient with empirical antibiotics, Rocephin 1 gram IV started now. SCDs to bilateral lower extremity for DVT prophylaxis Patient does request to be a do not resuscitate and this order is written. Will discuss further orders and plan of care with attending, Dr. Robison. At time of discharge medical care will return to primary care provider, Dr. Leonidas Mathew 09/14/16 Add scheduled Lasix 20 mg IV every 8 hours as well as scheduled Duoneb tx. Continue to follow potassium and Leukocytosis. 09/15/16 ASSESSMENT Acute on chronic systolic CHF Hyperkalemia, POA - resolved Hypernatremia, POA Respiratory failure with hypoxia - non-oxygen dependent at [facility] Hypotension (underlying hx of HTN) Elevated troponin, suspect secondary to CHF Uremia, underlying CKD stage III Elevated LFTs - on 07/14/16, AST was 36, ALT 34, Alk Phos 74 Gccvkcaaiwyh-osclcnyp-Buqiohreo versus CLL. Last WBC was 24.5 on 07/14/16. Elevated procalcitonin and elevated lactate Macrocytic anemia Chronic atrial fibrillation, on Coumadin - INR supratherapeutic CLL - sees Dr. Graham Patten Osteoporosis with chronic back pain PLAN Acute on Chronic CHF, systolic; a-fib with RVR; respiratory failure with hypoxia ; elevated BUN with underlying CKD -echo ordered. Called [facility] - she does not have a nuclear medical technologist ; no echo on record. -pt continues to be hypotensive and diuretics were discontinued on 09/15/16. Received NS 1L 09/15/16 yet BUN continues to climb. Cr. stable, slightly improved at 1.6. Reassess CMP in am. -weight is trending up, and she has poor urinary output (measured via Huerta) -suspect elevated trop is secondary to CHF rather than acute SD - EKG reviewed showing a-fib with RBBB, no acute ST segment changes. Plus, BNP was markedly elevated on admit (52K) . LFT elevation support possibility of liver congestion d/t CHF. -repeat CXR in am. -HR ranges between 80s-119 over last 48 hours. She's on metoprolol tartrate 25 mg daily. -wean oxygen as able - per Dr. Mathew's office, she was not on oxygen at [facility]. -Dr. Casey consulted; discussed with Sheree Bowling APRN -INR supratherapeutic today at 4.09 - Coumadin held. Leukocytosis, elevated lactate, elevated procalcitonin -Leukocytosis is trending down. Per Dr. Mathew's office, last WBC was 24.5 on . Oncologist is Dr. Patten. Differential shows predominance of lymphocytes, as expected with hx of CLL. -Lactate actually increased on repeat, PCT also >0.5, indicative of bacterial etiology yet no source has been identified - possible right infiltrates on CXR. -Repeat lactate and procalcitonin now and obtain blood cultures x2 (with CLL she is immunocompromised). Repeat UA (bacteruria noted on admit UA) and culture. Electrolyte abnormalities -K down to 5.0 -Na slightly high, stable at 145 -Ca++ normal Elevated TSH -suspect r/t recent illness [sick euthyroid[, but will check free T3 since she' s had fatigue and a-fib with RVR -f/u in outpt setting Macrocytic anemia -B12 and folate were both high Myopathy -consult PT/OT <Jose David Robison - Last Filed: 09/15/16 19:21> Objective Vital signs: Temperature 97.8 F 09/15/16 15:05 Pulse Rate 94 09/15/16 15:05 Respiratory Rate 18 09/15/16 15:26 Blood Pressure 99/59 09/15/16 15:52 Pulse Oximetry 92 09/15/16 15:26 Oxygen Delivery Method Nasal Cannula Oxygen Flow Rate 4 Results - Labs CBC & Chem 7: 09/15/16 04:53 09/15/16 04:53 Microbiology Results: Microbiology 09/15/16 16:33 Peripheral/Iv Start Blood Culture - Preliminary Culture Initiated - Results Pending 09/15/16 16:33 Peripheral/Iv Start Blood Culture - Preliminary Culture Initiated - Results Pending Assessment and Plan (1) Hyperkalemia Problem details: POA Current visit: Yes Status: Acute Assessment and Plan: Have independently interviewed and examined pt. Chart reviewed. Case discussed with my WASHING MACHINE REPAIRER and Dr Casey. Care plan developed with my supervision; agree with above. Resting in bed today. Very weak and tired. Needing O2, sats low normal; not feeling breathing too bad. No pain with breathing. No chest pain. Oral drive decreased. Notes loose stool. Low back sore-just received some pain medications. Lungs: decreased and course, crackles bilaterally. CV: irregularly irregular MSE: awake alert appropriate Plan: Dr Casey starting bumex to help diuresis-with increased PA pressure he would like to check V/Q scan to exclude PE. Continue with Rocephin coverage. PT/ OT to help increase functional status. Monitor BMP due to diuretics. Monitor INR due to coumadin use. Hospital Course Summary Disclaimer: The visit summary below is not to be considered part of the above Progress Note. Addendum entered and electronically signed by Anita Farris APRN 09/15/16 15: 57: Multiple episodes of diarrhea today - check GI panel. Addendum entered and electronically signed by Anita Farris, ROSAS 09/15/16 16: 50: I spoke with Dr. Mathew - he states that in the clinic she has always been in sinus rhythm with rates of 60-70. He states that her BP usually runs 90-120s/60s , and her dry weight is thought to be about 93 lbs (42.3 kg). Frequently she has upper lobe crackles, and he recently check a fungal pneumonitis panel which was negative. Echo prelim report - biatrial dilation, EF 50-55%, Moderate MR, Aortic stenosis vs aortic sclerosis, mild AI, moderate TR with mod-severe PH (PA pressure of 68) , mod PI, abnormal infera vena cava suggestive of elevated CVP.
[2016-09-15] MEDS: CEFTRIAXONE 1 G in NS 100 ML IV SCH (16:43)
[2016-09-15] MEDS: LACTOBACILLUS (15B cfu) CAPSULE PO SCH ×2 (16:43→17:20)
[2016-09-15] MEDS: DICLOFENAC 1% TOP GEL 100gm TP PRN (16:44)
[2016-09-15] MEDS: HYDROCODONE/APAP 5mg/325mg TABLET PO PRN ×2 (16:59→21:29)
--- NOTE | 2016-09-15 17:51 | Cardiology Consult Note ---
History of Present Illness Consult date: 09/15/16 <Sheree Bowling - 09/15/16 18:11> Requesting physician: Jose David Robison <TawnyaSheree gregory - 09/15/16 18:11> Chief complaint: low BP, difficulty diuresing <TawnyaSheree Eng - 09/15/16 18:11 > History of present illness: Josefina is an 85-year-old female who resides independently at [facility] under the care of Dr. Leonidas Mathew. She reports that she had an INR done last Tuesday that was elevated at 3.9. She reports on Tuesday. She had a nosebleed and also coughed up some blood, so she stopped taking her Coumadin. Yesterday she contacted EMS and requested to come to the hospital for evaluation to get her "INR fixed". Upon EMS arrival, she was found to be hypoxic with room air saturations of 87%. She has continued to require oxygen to maintain adequate saturations. She was found to be hyperkalemic with a potassium of 6.6. Sodium is 143, BUN 82, creatinine 2.0. LFTs are elevated. AST 150, ALT 183, alkaline phosphatase 1.82. Troponin is found to be elevated at 0.193, and proBNP is 52,100. Her venous lactate is 2.1, pro calcitonin of 2.91. White count is elevated at 53. 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 Hemoglobin is stable at 13.3, hematocrit 40.5 and platelet count 347. INR is 2.68. Twelve-lead EKG does reveal atrial fibrillation with RVR initial rate in the 130s. A chest x-ray was obtained showing mild cardiomegaly with a right moderate pleural effusion with possible infiltrates. Given findings of hyperkalemia, accompanied with elevated troponin and hypoxia. The hospitalist services were contacted and accepted patient for inpatient admission for further evaluation and treatment. Dr. Casey is consulted for low BPs and difficult diureses. <Sheree Bowling - 09/15/16 18:11> Review of Systems - Constitutional Constitutional: Present: fatigue. Absent: chills, fever(s), weakness < Sheree Bowling - 09/15/16 18:11> - EENMT Eyes: Absent: change in vision <Sheree Bowling 09/15/16 18:11> Balance: Absent: vertigo <TawnyaSheree Albertina 09/15/16 18:11> Mouth/Throat: Absent: sore throat <TawnyaSheree Albertina 09/15/16 18:11> - Cardiovascular Cardiovascular: Present: dyspnea on exertion, edema. Absent: chest pain, palpitations, syncope <TawnyaSheree Alberitna 09/15/16 18:11> Rhythm: Present: abnormal rhythm <TawnyaSheree Albertina 09/15/16 18:11> - Respiratory Respiratory: Present: dyspnea <TawnyaSheree Albertina 09/15/16 18:11> - Gastrointestinal Gastrointestinal: Absent: diarrhea, nausea, vomiting <TawnyaSheree gregory Albertina 18:11> - Genitourinary Genitourinary: Absent: dysuria <TawnyaSheree gregory Albertina 09/15/16 18:11> - Integumentary/Breasts Integumentary: Absent: rash <TawnyaSheree gregory Albertina 09/15/16 18:11> - Neurological Neurological: Absent: dizziness <TawnyaSheree gregory Albertina 09/15/16 18:11> [facility] Patient Stated Medical History Cataracts Yes Cardiac Arrhythmia Yes: A-FIB Congestive Heart Failure Yes Osteoarthritis arthritis in knees Other Musculoskeletal Yes: CHRONIC KNEE PAIN Shingles Yes <Fausto Casey - 09/20/16 12:50> Patient Stated Medical History Cataracts Yes Cardiac Arrhythmia Yes: A-FIB Congestive Heart Failure Yes: Systolic HTN Yes Osteoarthritis arthritis in knees Other Musculoskeletal Yes: CHRONIC KNEE PAIN Shingles Yes Chronic kidney disease yes CLL Yes Chronic anticoagulation Yes <TawnyaSheree gregory Albertina 09/15/16 18:11> Surgical History: Tonsillectomy. Hysterectomy <TawnyaSheree gregory Albertina 09/15/16 18: 11> Family History: Patient is adopted <Sheree Bowling Albertina 09/15/16 18:11> - Social History Smoking status: Former smoker <Sheree Bowling 09/15/16 18:11> Substance use type: does not use <Sheree Bowling 09/15/16 18:11> Alcohol intake frequency: does not drink <Sheree Bowling 09/15/16 18:11> Housing: alf (independent living) <Sheree Bowling - 09/15/16 18:11> Current occupational status: retired <Sheree Bowling - 09/15/16 18:11> Medications Home Medications Medication Instructions Recorded Confirmed Type Alendronate Sodium 70 mg PO WEEKLY 09/13/16 09/13/16 History Diclofenac [Voltaren] 1 applic TOP PRN PRN 09/13/16 09/13/16 History Furosemide [Lasix] 20 mg PO AM 09/13/16 09/13/16 History Gabapentin 300 mg PO HS 09/13/16 09/13/16 History Metoprolol Tartrate [Lopressor] 25 mg PO WB 09/13/16 09/13/16 History Potassium Chloride [Klor-Con M20] 20 meq PO DAILY 09/13/16 09/13/16 History Warfarin [Coumadin] 2 mg PO NOON 09/13/16 09/13/16 History <Fausto Casey - 09/20/16 12:50> Allergies Allergy/AdvReac Type Severity Reaction Status Date / Time No Known Allergies Allergy Unknown Unverified 09/13/16 17:01 <Fausto Casey - 09/20/16 12:50> Exam Vital signs: Temperature 97.6 F 09/17/16 00:00 Pulse Rate 100 09/17/16 03:43 Respiratory Rate 22 09/17/16 03:43 Blood Pressure 95/47 09/17/16 03:43 Pulse Oximetry 78 L 09/17/16 03:43 Oxygen Delivery Method Simple Mask Oxygen Flow Rate 12 <Fausto Casey - 09/20/16 12:50> Temperature 97.8 F 09/15/16 15:05 Pulse Rate 94 09/15/16 15:05 Respiratory Rate 18 09/15/16 15:26 Blood Pressure 99/59 09/15/16 15:52 Pulse Oximetry 92 09/15/16 15:26 Oxygen Delivery Method Nasal Cannula Oxygen Flow Rate 4 <Sheree Bowling - 09/15/16 18:11> - Constitutional mild distress, well nourished, well developed, cooperative <Sheree Bowling - 09/15/16 18:55> - Routine HEENT Exam Head: Present: normocephalic <Sheree Bowling 09/15/16 18:11> ENT: Present: mucous membranes moist <Sheree Bowling 09/15/16 18:11> - Routine Neck Exam Present: JVD. Absent: carotid bruit <Sheree Bowling 09/15/16 18:55> - Routine Chest/Breast/Axilla Exam Chest wall: Absent: tenderness <Sheree Bowling 09/15/16 18:55> - Routine Respiratory Exam Present: rhonchi, diminished air movement. Absent: CTA bilaterally <Sheree Bowling 09/15/16 18:55> - Routine Cardiovascular Exam Present: irregular rhythm, JVD <Sheree Bowling 09/15/16 18:55> - Routine Abdominal Exam Present: soft, normoactive bowel sounds <Sheree Bowling 09/15/16 18:55> - Routine Extremities Exam Present: no edema <Sheree Bowling 09/15/16 18:55> - Routine Skin Exam Present: intact, dry, warm <Sheree Bowling 09/15/16 18:11> - Routine Neurological Exam Present: alert, oriented X3 <Sheree Bowling 09/15/16 18:11> - Routine Psychiatric Exam Present: normal affect, normal thought process <Sheree Bowling 09/15/16 18: 11> Results 09/17/16 04:28 09/17/16 04:28 <Fausto Casey - 09/20/16 12:50> Cardiac Enzymes 09/15/16 Range/Units 04:53 AST 113 H D (14-36) U/L CBC 09/15/16 Range/Units 04:53 WBC 35.9 H* (4.5-11.0) T/MM3 RBC 3.50 L (4.00-5.20) M/MM3 Hgb 11.6 L (12-16) GM/DL Hct 36.6 (36-46) % Plt Count 290 (130-400) T/MM3 Neut # Not performed Lymph # Not performed [place] # Not performed Eos # Not performed Baso # Not performed Comprehensive Metabolic Panel 09/15/16 Range/Units 04:53 Sodium 145 H (134-144) MEQ/L Potassium 5.0 (3.6-5) MEQ/L Chloride 108 H (98-107) MEQ/L Carbon Dioxide 27 (22-30) MEQ/L BUN 92.0 H* (7-17) MG/DL Creatinine 1.6 H (0.7-1.2) MG/DL Glucose 153 H (65-110) MG/DL Calcium 8.8 (8.4-10.2) MG/DL AST 113 H D (14-36) U/L ALT 206 H (9-52) U/L Alkaline Phosphatase 356 H D (38-126) U/L Total Protein 5.7 L (6.3-8.2) G/DL Albumin 3.2 L (3.5-5.0) G/DL Intake and Output 09/15/16 09/15/16 09/15/16 06:59 14:59 22:59 Intake Total 120 / 120 440 / 440 Output Total 125 / 125 200 / 200 Balance -5 / -5 240 / 240 Intake: Oral 120 / 120 440 / 440 Output: Urine Amount (Catheter) 125 / 125 200 / 200 Other: Weight 90 lb 6.232 oz 90 lb 6.232 oz Patient Weight 09/16/16 06:59 Weight 90 lb 6.232 oz Laboratory Results - last 48 hr 09/13/16 09/13/16 09/13/16 17:52 18:09 18:09 WBC RBC Hgb Hct MCV MCH MCHC RDW Std Deviation Plt Count MPV Immature Gran % (Auto) Neut % (Auto) Lymph % (Auto) [place] % (Auto) Eos % (Auto) Baso % (Auto) Neut # Lymph # [place] # Eos # Baso # Abs Immat Gran (auto) Neutrophils % (Manual) Band Neutrophils % Lymphocytes % (Manual) Monocytes % (Manual) Neutrophils # (Manual) Band Neutrophils # Lymphocytes # (Manual) Monocytes # (Manual) Polychromasia Poikilocytosis Anisocytosis Ovalocytes Helmet Cells [place] Cells RBC Morph Comment INR Turbidity < 20 Sodium 145 H Potassium 6.0 H Chloride 108 H Carbon Dioxide 26 Anion Gap 11 BUN 80.0 H* Creatinine 1.7 H D GFR Calculation 29 BUN/Creatinine Ratio 47 H Glucose 105 Calculated Osmolality 303 H Calcium 10.1 Total Bilirubin Icterus Index < 2 AST ALT Alkaline Phosphatase Troponin I Total Protein Albumin Globulin Albumin/Globulin Ratio Plasma Lactate 2.5 H Vitamin B12 Folate Procalcitonin TSH Specimen Hemolysis < 15 Ur Collection Type Not provided Urine Color Yellow Urine Clarity Clear Urine pH 5.0 Ur Specific [place] 1.020 Urine Protein 1+ A Urine Glucose (UA) Negative Urine Ketones Negative Urine Occult Blood Trace-intact Urine Nitrate Negative Urine Bilirubin Negative Urine Urobilinogen 0.2 Ur Leukocyte Esterase Negative Urine RBC 1-3 Urine WBC 0-1 Ur Squamous Epith Cells 0-5 Urine Bacteria 3+ H Hyaline Casts 3-5 Urine Mucus Present Ur Culture Indicated? Cult not indicated 09/13/16 09/14/16 09/14/16 18:09 04:39 04:39 WBC 42.2 H* RBC 3.66 L Hgb 11.9 L D Hct 37.8 MCV 103.3 H MCH 32.5 MCHC 31.5 RDW Std Deviation 61.9 H Plt Count 298 MPV 9.8 Immature Gran % (Auto) Not performed Neut % (Auto) Not performed Lymph % (Auto) Not performed [place] % (Auto) Not performed Eos % (Auto) Not performed Baso % (Auto) Not performed Neut # Not performed Lymph # Not performed [place] # Not performed Eos # Not performed Baso # Not performed Abs Immat Gran (auto) Not performed Neutrophils % (Manual) 45.0 Band Neutrophils % 1.0 Lymphocytes % (Manual) 52.0 H Monocytes % (Manual) 2.0 Neutrophils # (Manual) 19.0 H Band Neutrophils # 0.4 Lymphocytes # (Manual) 21.9 H Monocytes # (Manual) 0.8 Polychromasia Poikilocytosis 1+ Anisocytosis 2+ Ovalocytes 1+ Helmet Cells 1+ [place] Cells 1+ RBC Morph Comment Abnormal INR 2.98 H Turbidity Sodium Potassium Chloride Carbon Dioxide Anion Gap BUN Creatinine GFR Calculation BUN/Creatinine Ratio Glucose Calculated Osmolality Calcium Total Bilirubin Icterus Index AST ALT Alkaline Phosphatase Troponin I 0.205 H Total Protein Albumin Globulin Albumin/Globulin Ratio Plasma Lactate Vitamin B12 Folate Procalcitonin TSH Specimen Hemolysis < 15 Ur Collection Type Urine Color Urine Clarity Urine pH Ur Specific [place] Urine Protein Urine Glucose (UA) Urine Ketones Urine Occult Blood Urine Nitrate Urine Bilirubin Urine Urobilinogen Ur Leukocyte Esterase Urine RBC Urine WBC Ur Squamous Epith Cells Urine Bacteria Hyaline Casts Urine Mucus Ur Culture Indicated? 09/14/16 09/14/16 09/14/16 04:39 04:39 04:39 WBC RBC Hgb Hct MCV MCH MCHC RDW Std Deviation Plt Count MPV Immature Gran % (Auto) Neut % (Auto) Lymph % (Auto) [place] % (Auto) Eos % (Auto) Baso % (Auto) Neut # Lymph # [place] # Eos # Baso # Abs Immat Gran (auto) Neutrophils % (Manual) Band Neutrophils % Lymphocytes % (Manual) Monocytes % (Manual) Neutrophils # (Manual) Band Neutrophils # Lymphocytes # (Manual) Monocytes # (Manual) Polychromasia Poikilocytosis Anisocytosis Ovalocytes Helmet Cells [place] Cells RBC Morph Comment INR Turbidity < 20 Sodium 144 Potassium 6.2 H* Chloride 109 H Carbon Dioxide 25 Anion Gap 10 BUN 82.0 H* Creatinine 1.7 H GFR Calculation 29 BUN/Creatinine Ratio 48 H Glucose 126 H Calculated Osmolality 304 H Calcium 9.2 D Total Bilirubin 0.60 Icterus Index < 2 AST 310 H D ALT 253 H Alkaline Phosphatase 137 H Troponin I 0.253 H Total Protein 5.7 L Albumin 3.2 L Globulin 2.5 Albumin/Globulin Ratio 1.3 Plasma Lactate Vitamin B12 > 1000 H Folate > 20.0 H Procalcitonin TSH Specimen Hemolysis < 15 < 15 Ur Collection Type Urine Color Urine Clarity Urine pH Ur Specific [place] Urine Protein Urine Glucose (UA) Urine Ketones Urine Occult Blood Urine Nitrate Urine Bilirubin Urine Urobilinogen Ur Leukocyte Esterase Urine RBC Urine WBC Ur Squamous Epith Cells Urine Bacteria Hyaline Casts Urine Mucus Ur Culture Indicated? 09/14/16 09/14/16 09/15/16 14:58 14:58 04:40 WBC RBC Hgb Hct MCV MCH MCHC RDW Std Deviation Plt Count MPV Immature Gran % (Auto) Neut % (Auto) Lymph % (Auto) [place] % (Auto) Eos % (Auto) Baso % (Auto) Neut # Lymph # [place] # Eos # Baso # Abs Immat Gran (auto) Neutrophils % (Manual) Band Neutrophils % Lymphocytes % (Manual) Monocytes % (Manual) Neutrophils # (Manual) Band Neutrophils # Lymphocytes # (Manual) Monocytes # (Manual) Polychromasia Poikilocytosis Anisocytosis Ovalocytes Helmet Cells [place] Cells RBC Morph Comment INR Turbidity < 20 Sodium 146 H Potassium 5.6 H Chloride 109 H Carbon Dioxide 24 Anion Gap 13 BUN 87.0 H* Creatinine 1.7 H GFR Calculation 29 BUN/Creatinine Ratio 51 H Glucose 234 H Calculated Osmolality 316 H Calcium 9.2 Total Bilirubin Icterus Index < 2 AST ALT Alkaline Phosphatase Troponin I 0.244 H Total Protein Albumin Globulin Albumin/Globulin Ratio Plasma Lactate Vitamin B12 Folate Procalcitonin 2.85 H* TSH Specimen Hemolysis < 15 17 Ur Collection Type Urine Color Urine Clarity Urine pH Ur Specific [place] Urine Protein Urine Glucose (UA) Urine Ketones Urine Occult Blood Urine Nitrate Urine Bilirubin Urine Urobilinogen Ur Leukocyte Esterase Urine RBC Urine WBC Ur Squamous Epith Cells Urine Bacteria Hyaline Casts Urine Mucus Ur Culture Indicated? 09/15/16 09/15/16 09/15/16 04:53 04:53 04:53 WBC 35.9 H* RBC 3.50 L Hgb 11.6 L Hct 36.6 MCV 104.6 H MCH 33.1 MCHC 31.7 RDW Std Deviation 64.2 H Plt Count 290 MPV 9.7 Immature Gran % (Auto) Not performed Neut % (Auto) Not performed Lymph % (Auto) Not performed [place] % (Auto) Not performed Eos % (Auto) Not performed Baso % (Auto) Not performed Neut # Not performed Lymph # Not performed [place] # Not performed Eos # Not performed Baso # Not performed Abs Immat Gran (auto) Not performed Neutrophils % (Manual) 41.0 Band Neutrophils % Lymphocytes % (Manual) 56.0 H Monocytes % (Manual) 3.0 Neutrophils # (Manual) 14.7 H Band Neutrophils # Lymphocytes # (Manual) 20.1 H Monocytes # (Manual) 1.1 H Polychromasia 1+ Poikilocytosis 1+ Anisocytosis 2+ Ovalocytes 1+ Helmet Cells [place] Cells 2+ RBC Morph Comment Abnormal INR 4.09 H Turbidity < 20 Sodium 145 H Potassium 5.0 Chloride 108 H Carbon Dioxide 27 Anion Gap 10 BUN 92.0 H* Creatinine 1.6 H GFR Calculation 31 BUN/Creatinine Ratio 58 H Glucose 153 H Calculated Osmolality 310 H Calcium 8.8 Total Bilirubin 0.40 Icterus Index < 2 AST 113 H D ALT 206 H Alkaline Phosphatase 356 H D Troponin I Total Protein 5.7 L Albumin 3.2 L Globulin 2.5 Albumin/Globulin Ratio 1.3 Plasma Lactate Vitamin B12 Folate Procalcitonin TSH Specimen Hemolysis 30 H Ur Collection Type Urine Color Urine Clarity Urine pH Ur Specific [place] Urine Protein Urine Glucose (UA) Urine Ketones Urine Occult Blood Urine Nitrate Urine Bilirubin Urine Urobilinogen Ur Leukocyte Esterase Urine RBC Urine WBC Ur Squamous Epith Cells Urine Bacteria Hyaline Casts Urine Mucus Ur Culture Indicated? 09/15/16 09/15/16 04:53 16:32 WBC RBC Hgb Hct MCV MCH MCHC RDW Std Deviation Plt Count MPV Immature Gran % (Auto) Neut % (Auto) Lymph % (Auto) [place] % (Auto) Eos % (Auto) Baso % (Auto) Neut # Lymph # [place] # Eos # Baso # Abs Immat Gran (auto) Neutrophils % (Manual) Band Neutrophils % Lymphocytes % (Manual) Monocytes % (Manual) Neutrophils # (Manual) Band Neutrophils # Lymphocytes # (Manual) Monocytes # (Manual) Polychromasia Poikilocytosis Anisocytosis Ovalocytes Helmet Cells [place] Cells RBC Morph Comment INR Turbidity Sodium Potassium Chloride Carbon Dioxide Anion Gap BUN Creatinine GFR Calculation BUN/Creatinine Ratio Glucose Calculated Osmolality Calcium Total Bilirubin Icterus Index AST ALT Alkaline Phosphatase Troponin I Total Protein Albumin Globulin Albumin/Globulin Ratio Plasma Lactate 3.0 H Vitamin B12 Folate Procalcitonin TSH 5.03 H Specimen Hemolysis Ur Collection Type Urine Color Urine Clarity Urine pH Ur Specific [place] Urine Protein Urine Glucose (UA) Urine Ketones Urine Occult Blood Urine Nitrate Urine Bilirubin Urine Urobilinogen Ur Leukocyte Esterase Urine RBC Urine WBC Ur Squamous Epith Cells Urine Bacteria Hyaline Casts Urine Mucus Ur Culture Indicated? <Sheree Bowling - 09/15/16 18:11> - Imaging and Cardiology Echo: report reviewed <Sheree Bowling - 09/15/16 18:11> EKG results: image reviewed <Sheree Bowling - 09/15/16 18:11> Imaging & Cardiology Narrative: Date of Exam: 09/13/16 Ordering Provider: Indy Ramsey APRN Type of Exam(s): XR chest 2V Reason for Exam(s): hypoxia LOCATION OF DICTATION: [place] EXAM: XR chest 2V HISTORY: hypoxia COMPARISON: No prior studies available for comparison. FINDINGS: The heart is mildly enlarged. There is some prominence the central portal vasculature. Moderate size right pleural effusion with subjacent atelectasis or infiltrates. Left lung is clear. There is no pneumothorax. Mild spondylosis of the thoracic spine. Impression: 1. Mild cardiomegaly and question of pulmonary vascular congestion. 2. Small right pleural effusion with subjacent atelectasis or infiltrates. Follow-up is recommended. 09/15/16 18:03 09/15/16 18:03 Date of Exam: 09/13/16 Type of Exam(s): US echo doppler complete DATE OF PROCEDURE September 13, 2016 REFERRING PHYSICIAN Jose David Robison MD This is a two-dimensional echo with spectral Doppler, color-flow and M-mode. It was obtained in a patient with hypoxia. Left atrium is markedly dilated. Left ventricle end-diastolic dimension is normal. Left ventricle wall thickness is normal. LV systolic function is at the lower limits of normal with ejection fraction of about 50-55%. Right atrium is dilated. Right ventricle is dilated. Aortic root dimension is normal. Mitral annulus is calcified. Mitral valve leaflets are heavily calcified and appear to be stenotic with a mean gradient of 11 across the mitral valve. Moderate mitral regurgitation is present. Aortic valve shows fibrocalcific changes. By Doppler studies, the patient appears to have aortic stenosis with a valve area of 1.0 cm2. However, 2-D images appear to show adequate opening of the leaflets. Mild aortic insufficiency is present. Tricuspid valve shows moderate tricuspid regurgitation with moderate to severe pulmonary hypertension with estimated pulmonary artery systolic pressure of 68. Pulmonary valve shows moderate pulmonary insufficiency. There is no pericardial effusion. Inferior vena cava is dilated, suggestive of elevated central venous pressure. Interventricular septum appears to be flat suggestive of volume overload. IMPRESSION 1. Biatrial dilation. 2. Right ventricular dilation. 3. LV function at the lower limits of normal with ejection fraction of about 50 -55%. 4. Mitral sclerosis versus stenosis with mean gradient of 11 with moderate mitral regurgitation. 5. Aortic stenosis versus aortic sclerosis with a valve area of 1.0 cm2 by Doppler studies, but 2-D images appear to show adequate opening of the leaflets. 6. Mild aortic insufficiency. 7. Moderate tricuspid regurgitation with moderate to severe pulmonary hypertension with estimated pulmonary artery systolic pressure of 68. 8. Moderate pulmonary insufficiency. 9. Abnormal inferior vena cava suggestive of elevated central venous pressure. <Sheree Bowling - 09/15/16 18:11> EKG interpretations - EKG EKG shows: atrial fibrillation (with RVR) <Sheree Bowling - 09/16/16 14:26> - Blocks, axis, hypertrophy, ST abn AV and intraventricular conduction: right bundle branch block (fixed/ intermittent, complete/incomplete) (incomplete) <Sheree Bowling - 09/16/16 14: 26> QRS axis and voltage: right axis deviation (+90 to +180) <Sheree Bowling - 11/23 14:26> Assessment and Plan (1) Atrial fibrillation Problem details: Paroxysmal, with RVR Status: Chronic (2) Chronic anticoagulation Status: Chronic (3) Essential (primary) hypertension Status: Chronic (4) Elevated troponin Status: Acute (5) Diastolic heart failure Problem details: Acute on chronic; ejection fraction 50-55% with pulmonary hypertension Status: Acute (6) Chronic kidney disease (CKD) Status: Chronic (7) Elevated liver function tests Status: Acute <Fausto Casey - 09/20/16 12:50> (1) Diastolic heart failure Status: Acute Diurese with Bumex 2mg IV Q8H (2) Elevated troponin Status: Acute Trending down, VQ scan in am. (3) Atrial fibrillation Status: Chronic Increase Metoprolol to BID (4) Chronic anticoagulation Status: Chronic (5) Essential (primary) hypertension Status: Chronic (6) Chronic kidney disease (CKD) Status: Chronic (7) Elevated liver function tests Status: Acute <Sheree Bowling - 09/16/16 14:26> - Attestation Attestation Narrative: 09/20/16 12:50 Recommendation After examining the patient I agree with the above assessment. I am involved in the formulation of the patient's plan of care. <Fausto Casey - 09/20/16 12:50> Hospital Course Summary Disclaimer: The visit summary below is not to be considered part of the above Progress Note. <Fausto Casey - 09/20/16 12:50> The visit summary below is not to be considered part of the above Progress Note. <Sheree Bowling - 09/15/16 18:11> Hospital Course: 09/13/16-admission Impression Hypernatremia Respiratory failure with hypoxia Elevated troponin Elevated LFTs Leukocytosis-etiology- Infection versus CLL Chronic atrial fibrillation Systolic heart failure Chronic anticoagulation Osteoporosis with chronic back pain hypertension Plan Will admit patient as a inpatient under the care of [facility] for hyperkalemia, elevated troponin, elevated LFTs, respiratory failure with hypoxemia Patient was treated for acute hyperkalemia in the emergency room including calcium gluconate, 1 amp of dextrose followed by 10 units of regular insulin. We will recheck a serum potassium and basic metabolic at 1800 today. Monitor patient on cardiac telemetry. Initial rate was atrial fibrillation RVR in the 130s. Patient was given Cardizem 10 milligrams IV 1 and is now in the 80s. Given elevated troponin. We will recheck serial troponins 3. Did review clinic notes from Dr. mathew. Office visit from 09/08/16 revealed that patient was on 40 of Lasix in the morning and 20 milligrams of Lasix at noon, however reconciled medications today indicate patient only takes 40 milligrams daily. Will give patient 20 grams of IV Lasix 1 now to help motivate fluid. Will reevaluate this following next chemistry panel. It appears the patient does have a history of systolic heart failure. Given increased oxygen demands. Will obtain an echocardiogram. Given hypoxia, leukocytosis and questionable infiltrate. Will cover patient with empirical antibiotics, Rocephin 1 gram IV started now. SCDs to bilateral lower extremity for DVT prophylaxis Patient does request to be a do not resuscitate and this order is written. Will discuss further orders and plan of care with attending, Dr. Robison. At time of discharge medical care will return to primary care provider, Dr. Leonidas Mathew 09/14/16 Add scheduled Lasix 20 mg IV every 8 hours as well as scheduled Duoneb tx. Continue to follow potassium and Leukocytosis. 09/15/16 ASSESSMENT Acute on chronic systolic CHF Hyperkalemia, POA - resolved Hypernatremia, POA Respiratory failure with hypoxia - non-oxygen dependent at [facility] Hypotension (underlying hx of HTN) Elevated troponin, suspect secondary to CHF Uremia, underlying CKD stage III Elevated LFTs - on 07/14/16, AST was 36, ALT 34, Alk Phos 74 [id number] versus CLL. Last WBC was 24.5 on 07/14/16. Elevated procalcitonin and elevated lactate Macrocytic anemia Chronic atrial fibrillation, on Coumadin - INR supratherapeutic CLL - sees Dr. Graham Patten Osteoporosis with chronic back pain PLAN Acute on Chronic CHF, systolic; a-fib with RVR; respiratory failure with hypoxia ; elevated BUN with underlying CKD -echo ordered. Called [facility] - she does not have a tank driver ; no echo on record. -pt continues to be hypotensive and diuretics were discontinued on 09/15/16. Received NS 1L 09/15/16 yet BUN continues to climb. Cr. stable, slightly improved at 1.6. Reassess CMP in am. -weight is trending up, and she has poor urinary output (measured via [place]) -suspect elevated trop is secondary to CHF rather than acute DC - EKG reviewed showing a-fib with RBBB, no acute ST segment changes. Plus, BNP was markedly elevated on admit (52K) . LFT elevation support possibility of liver congestion d/t CHF. -repeat CXR in am. -HR ranges between 80s-119 over last 48 hours. She's on metoprolol tartrate 25 mg daily. -wean oxygen as able - per Dr. Mathew's office, she was not on oxygen at [facility]. -Dr. Casey consulted; discussed with Sheree Bowling APRN -INR supratherapeutic today at 4.09 - Coumadin held. Leukocytosis, elevated lactate, elevated procalcitonin -Leukocytosis is trending down. Per Dr. Mathew's office, last WBC was 24.5 on . Oncologist is Dr. Patten. Differential shows predominance of lymphocytes, as expected with hx of CLL. -Lactate actually increased on repeat, PCT also >0.5, indicative of bacterial etiology yet no source has been identified - possible right infiltrates on CXR. -Repeat lactate and procalcitonin now and obtain blood cultures x2 (with CLL she is immunocompromised). Repeat UA (bacteruria noted on admit UA) and culture. Electrolyte abnormalities -K down to 5.0 -Na slightly high, stable at 145 -Ca++ normal Elevated TSH -suspect r/t recent illness [sick euthyroid[, but will check free T3 since she' s had fatigue and a-fib with RVR -f/u in outpt setting Macrocytic anemia -B12 and folate were both high Myopathy -consult PT/OT <Sheree Bowling - 09/16/16 14:26> Sepsis Assessment - Evaluation Sepsis screening result: Severe Sepsis Risk <Sheree Bowling - 09/15/16 18:11>
[2016-09-15] MEDS: GABAPENTIN 300 MG CAPSULE PO SCH (21:10)
--- NOTE | 2016-09-16 07:14 | Pharmacy Consult ---
Pharmacy Consult-Warfarin - Laboratory Information 09/14/16 09/15/16 09/16/16 04:39 04:53 05:03 INR 2.98 H 4.09 H 3.92 H - Consult Information Will give no warfarin today. Thank you
[2016-09-16] MEDS: ALBUTEROL/IPRATROPIUM 2.5mg-0.5mg/3ml NEB AEROSOL SCH ×4 (08:03→19:00)
[2016-09-16] MEDS: LACTOBACILLUS (15B cfu) CAPSULE PO SCH ×3 (10:12→16:40)
--- NOTE | 2016-09-16 11:06 | Progress Note ---
<KaleighAnita D - Last Filed: 09/16/16 11:03> Subjective: Josefina was resting in bed with her eyes closed. She awakened easily with verbal, but seemed very tired and fatigued today. She kept her eyes closed during conversation. She does not consistently answer my questions. She admitted to feeling miserable. She also made comments such as wanting to , and "what's the point [of continuing treatment]?". She is open to discussing hospice, but is worried about the cost associated with it. She states that she does not have any family that she would wish to talk to to help her make this decision. Objective Vital signs: Temperature 95.4 F L 09/16/16 07:22 Pulse Rate 91 09/16/16 07:22 Respiratory Rate 20 09/16/16 08:04 Blood Pressure 91/53 09/16/16 07:45 Pulse Oximetry 92 09/16/16 08:04 Oxygen Delivery Method Nasal Cannula Oxygen Flow Rate 2 Rhythm: Atrial Fibrillation with RVR Weight: 41.3 kg - Constitutional Present: mild distress, thin - Routine HEENT Exam ENT: Present: mucous membranes dry, oropharynx clear - Routine Respiratory Exam Present: decreased breath sounds, rales - Routine Cardiovascular Exam Present: S1, S2, irregularly irregular, JVD - Routine Abdominal Exam Present: soft, normoactive bowel sounds, non tender - Routine Extremities Exam Present: pulses intact - Routine Skin Exam Present: dry, pallor, warm - Routine Neurological Exam Present: hearing grossly intact. Absent: alert (drowsy), facial asymmetry - Routine Psychiatric Exam Present: cooperative, depressed. Absent: normal affect Results - Labs CBC & Chem 7: 09/16/16 05:03 09/16/16 05:03 Microbiology Results: Microbiology 09/15/16 16:33 Peripheral/Iv Start Blood Culture - Preliminary Culture Initiated - Results Pending 09/15/16 16:33 Peripheral/Iv Start Blood Culture - Preliminary Culture Initiated - Results Pending Assessment and Plan (1) Hyperkalemia Problem details: POA Current visit: Yes Status: Acute DVT Prophylaxis: SCD's Resuscitation Status: Do Not Resuscitate Assessment and Plan: ASSESSMENT Acute on chronic systolic CHF Hyperkalemia, POA Hypernatremia, POA - resolved Respiratory failure with hypoxia - non-oxygen dependent at SWV Hypotension (underlying hx of HTN) Elevated troponin, suspect secondary to CHF Uremia, underlying CKD stage III Elevated LFTs - on 07/14/16, AST was 36, ALT 34, Alk Phos 74 Hswgzjymceec-hoignqsl-Vzxxqafyw versus CLL. Ceftriaxone started on 09/13/16. [ Baseline WBC 24.5 on 07/14/16.] Elevated procalcitonin and elevated lactate ?Possible infiltrate on CXR. Chronic atrial fibrillation, on Coumadin - INR supratherapeutic Diarrhea - GI panel negative Macrocytic anemia - folate and vitamin B12 were both high. Elevated TSH (mild) - free T3 ordered; f/u outpt. CLL - sees Dr. Graham Patten Osteoporosis with chronic back pain Myopathy - PT/OT ordered PLAN Acute on Chronic CHF, systolic; a-fib with RVR; respiratory failure with hypoxia ; elevated BUN with underlying CKD -echo: EF 50-55%, moderate mitral regurgitation, mild aortic insufficiency and aortic stenosis versus aortic sclerosis, fdul-vg-[id number] tricuspid regurgitation with moderate to severe pulmonary hypertension, moderate pulmonary insufficiency. -Cardiology ordered Bumex 2 mg IV TID (started 09/15/16). Patient has had some low blood pressure readings, down to 75/45 this morning, but later improved to 91/53; discussed with patient's primary care physician, Dr. Valles, and he notes that her blood pressures typically run low normal, with systolics 92-100 and diastolics in the 60s. Dr. Casey also increased metoprolol to BID. -Dr. Casey ordered VQ scan - this is pending. -BUN and creatinine continue to climb: 94 and 1.8. K has also increased to 5.6 despite increased diuresis. Bicarb is stable at 26. Consider renal sono. -weight is trending up, and she has poor urinary output (measured via Huerta) - only 40 mL between 0400 to 1000. -Persistent LFT elevation noted. -INR supratherapeutic today at 3.92 - Coumadin managed per pharmacy. Leukocytosis, elevated lactate, elevated procalcitonin -WBC back up - 59.5. Lymphocytes have increased to # 41.7 (70%) - doubled since yesterday. -Repeat lactate initially trended up and peaked at 3.0, then decreased again to 2.5. Procalcitonin slow to decline. ?infiltrates on CXR - consider ID consultation. Consider expanding abx. Electrolyte abnormalities -K back up to 5.6 despite diuresis -Na down to normal range at 140 Myopathy -PT evaluated her and is recommending physical therapy 5 times per week for 2 weeks. -OT is also recommending therapy 3 times per week for 2 weeks. Overall, concerned about impending cardiorenal syndrome; liver failure; CLL crisis. Prognosis is poor. Pt voiced interest in hospice, and I've discussed this with her RN and [employer]. She has a granddaughter as DPOA who is on vacation, and she doesn't want us to contact her now. Will discuss further treatment with Dr. Salmon and cardiology. Sepsis Assessment - Evaluation Sepsis screening result: Severe Sepsis Risk Hospital Course Summary Disclaimer: The visit summary below is not to be considered part of the above Progress Note. Hospital Course: 09/13/16-09/14/16 Hyperkalemia-calcium gluconate, 1 amp of dextrose followed by 10 units of regular insulin Hypernatremia Respiratory failure with hypoxia, Systolic heart failure - Echo ordered; Lasix 20 mg IV TID. Elevated troponin Elevated LFTs Leukocytosis-etiology- Infection versus CLL. possible infiltrate on CXR and Rocephin was started. Chronic atrial fibrillation - with RVR; Received Cardizem 10 mg IV with good response. Chronic anticoagulation Osteoporosis with chronic back pain hypertension 09/15/16 Acute on chronic systolic CHF - Dr. Casey consulted; started Bumex 2 mg IV TID and increased metoprolol to BID. Weight trending up with poor UO. Hyperkalemia, POA - resolved Hypernatremia, POA Respiratory failure with hypoxia - non-oxygen dependent at SWV Hypotension (underlying hx of HTN) Elevated troponin, suspect secondary to CHF Uremia, underlying CKD stage III Elevated LFTs - on 07/14/16, AST was 36, ALT 34, Alk Phos 74 Odbzodkqsjqo-gbiahcck-Mqxadqpxq versus CLL. Last WBC was 24.5 on 07/14/16. BC ordered. Elevated procalcitonin and elevated lactate - lactate peaked at 3.0 before trending back down. Macrocytic anemia-B12 and folate were both high Chronic atrial fibrillation, on Coumadin - INR supratherapeutic & Coumadin held. CLL - sees Dr. Graham Patten Osteoporosis with chronic back pain Elevated TSH-check free T3; f/u in outpt setting Myopathy-consult PT/OT 09/16/16 Acute on chronic systolic CHF - Bumex continues Hyperkalemia, POA - increased to 5.6 Hypernatremia, POA - resolved Respiratory failure with hypoxia - non-oxygen dependent at SWV Hypotension (underlying hx of HTN) - worsening Elevated troponin, suspect secondary to CHF Uremia, underlying CKD stage III. Poor urinary output. Elevated LFTs - on 07/14/16, AST was 36, ALT 34, Alk Phos 74 Yilwgmxddyqc-zlvfglfq-Zizdwttbh versus CLL. Ceftriaxone started on 09/13/16. [ Baseline WBC 24.5 on 07/14/16.] Elevated procalcitonin and elevated lactate ?Possible infiltrate on CXR. Chronic atrial fibrillation, on Coumadin - INR supratherapeutic Diarrhea - GI panel negative Macrocytic anemia - folate and vitamin B12 were both high. Elevated TSH (mild) - free T3 ordered; f/u outpt. CLL - sees Dr. Graham Patten Osteoporosis with chronic back pain Myopathy - PT/OT recommending inpatient therapy.. <Jessie Salmon - Last Filed: 09/16/16 18:03> Objective Vital signs: Temperature 96.0 F L 09/16/16 16:13 Pulse Rate 96 09/16/16 16:13 Respiratory Rate 24 09/16/16 16:13 Blood Pressure 81/43 09/16/16 16:46 Pulse Oximetry 99 09/16/16 16:13 Oxygen Delivery Method Nasal Cannula Oxygen Flow Rate 2 Results - Labs CBC & Chem 7: 09/16/16 05:03 09/16/16 05:03 Microbiology Results: Microbiology 09/15/16 16:33 Peripheral/Iv Start Blood Culture - Preliminary No Growth After 1 Day 09/15/16 16:33 Peripheral/Iv Start Blood Culture - Preliminary No Growth After 1 Day Assessment and Plan (1) Hyperkalemia Problem details: POA Current visit: Yes Status: Acute (2) Acute renal failure Problem details: Minimal urine output despite attempted diuresis; possible cardiorenal syndrome Current visit: Yes Status: Acute (3) Diastolic heart failure Problem details: Acute on chronic; ejection fraction 50-55% with pulmonary hypertension Current visit: Yes Status: Acute (4) Atrial fibrillation Problem details: Paroxysmal, with RVR Current visit: Yes Status: Chronic Assessment and Plan: I have independently evaluated and examined this patient. I reviewed the chart, the patient's history, and the SOCIAL WELFARE RESEARCH WORKER/PA's documented findings as above. We discussed and formulated the assessment and plan as above with additions as below: Mrs. Horowitz complained of low back pain and dyspnea. She asked that we "let her go"and reported that she is previously discussed this with her granddaughter /DPOA. Blood pressure has been lower today and urine output has dropped progressively. Overall heart rate is improved from admission but low-grade tachycardia is frequently still present. Fragile elderly female who is uncomfortable and continually attempting to reposition herself. Respirations are slightly labored with diminished airflow throughout. Neck veins are distended above the angle of the jaw with the patient lying at approximately 30. Irregularly irregular rhythm with tachycardia present. No edema at the ankles. Following my visit I spoke with Dr. Valles who reported patient has a history of A. fib but rhythm had been controlled until recently with heart rate typically in the 70s; she's recently converted back to A. fib with rapid rates and in conjunction with this conversion CHF has decompensated. Her baseline weight is 93 pounds and she is about 2 pounds below that currently. He indicated she has not previously discussed end of life wishes with him. He did feel she is competent to make these decisions. I spoke with the patient's daughter Francheska who has spoken with her brother and her daughter who is the patient's DPOA. Francheska indicated that the family has collectively discussed the patient's concerns and wish to do whatever the patient wants done recognizing that they may lose her in the near future. Francheska reports that the patient has suffered for a long time and that they don't want to prolong her suffering. Cardiology concurred that hospice was likely the appropriate management given progressive renal failure/anuria and hypotension involving with attempts to manage heart failure. Blood pressure down to 69/46 late afternoon prompting 500 cc normal saline fluid bolus. Patient sleeping when I went back to discuss palliative care interventions and possible hospice consultation. Will readdress later this afternoon or early evening. VQ scan reviewed by myself-multiple matched defects consistent with COPD but low probability for PE. - Time spent with patient greater than 35 minutes Hospital Course Summary Disclaimer: The visit summary below is not to be considered part of the above Progress Note. Hospital Course: 09/16/16 18:01 End-of-life care discussed with patient, Dr. Valles, patient's daughter Francheska, and cardiology. Patient felt to be competent to make decisions for herself and family members have discussed patient's decisions and desire to consider hospice care and are agreeable per her daughter. Cardiology service in agreement. Anticipate hospice consultation after patient identifies agency.
[2016-09-16] MEDS ORDERED: SALINE FLUSH 10ml SYRINGE ONE (11:12)
--- NOTE | 2016-09-16 13:47 | XRay Report ---
Indication: F/U PROCEDURE: XR chest 2V: Encounter: Initial Comparison: 09/13/2016 Findings: There is cardiomegaly and pulmonary vascular congestion with interstitial pulmonary edema and bilateral pleural effusions as well as bibasilar atelectasis. Trachea is midline. No significant tortuosity of the descending thoracic aorta. Impression: Moderate CHF with bilateral pleural effusions and bibasilar atelectasis and/or scarring. .
[2016-09-16] MEDS: HYDROCODONE/APAP 5mg/325mg TABLET PO PRN ×3 (14:17→23:51)
[2016-09-16] MEDS: DICLOFENAC 1% TOP GEL 100gm TP PRN ×2 (14:18→21:04)
--- NOTE | 2016-09-16 14:30 | Cardiology Progress Note ---
Subjective Principal diagnosis: Low BP, Difficult diuresis <Sheree Bowling - 09/16/16 14: 29> Interval history: Josefina is seen in her room on [facility]. She is more lethargic and does not answer questions. She does not appear in any distress, remains on O2 <Sheree Bowling - 09/17/16 10:29> Exam Vital signs: Temperature 97.6 F 09/17/16 00:00 Pulse Rate 100 09/17/16 03:43 Respiratory Rate 22 09/17/16 03:43 Blood Pressure 95/47 09/17/16 03:43 Pulse Oximetry 78 L 09/17/16 03:43 Oxygen Delivery Method Simple Mask Oxygen Flow Rate 12 <Fausto Casey - 09/20/16 12:53> Temperature 95.4 F L 09/16/16 07:22 Pulse Rate 122 H 09/16/16 08:08 Respiratory Rate 20 09/16/16 11:43 Blood Pressure 91/53 09/16/16 07:45 Pulse Oximetry 90 09/16/16 11:43 Oxygen Delivery Method Nasal Cannula Oxygen Flow Rate 2 <Sheree Bowling - 09/16/16 14:29> - Constitutional no acute distress, thin, cooperative <Sheree Bowling 09/17/16 10:29> - Routine HEENT Exam Head: Present: normocephalic <Sheree Bowling - 09/16/16 14:29> - Routine Neck Exam Present: JVD. Absent: carotid bruit <TawnyaSheree Eng 09/16/16 14:29> - Routine Chest/Breast/Axilla Exam Chest wall: Absent: tenderness <Sheree Bowling - 09/16/16 14:29> - Routine Respiratory Exam Present: rales (bibasilar). Absent: CTA bilaterally <TawnyaSheree Eng 14:29> - Routine Cardiovascular Exam Present: tachycardia, irregular rhythm, JVD <TawnyaSheree Eng - 09/16/16 14:29> - Routine Abdominal Exam Present: soft, normoactive bowel sounds <TawnyaSheree Eng - 09/16/16 14:29> - Routine Extremities Exam Present: no edema <TawnyaSheree Eng 09/16/16 14:29> - Routine Skin Exam Present: intact, dry, warm <Sheree Bowling - 09/16/16 14:29> - Routine Neurological Exam Present: alert <Sheree Bowling 09/16/16 14:29> - Routine Psychiatric Exam Present: normal affect <Sheree Bowling - 09/16/16 14:29> - Urinary Catheter Management Urethral Cath placed during this visit: no <Taylor Caseysein - 09/20/16 12:53> yes <TawnyaSheree Albertina - 09/17/16 10:31> Urethral indwelling: Yes <TawnyaSheree Albertina 09/17/16 10:31> Reason for continuing: Accurate I&O/Aggressive Diuresis <TawnyaSheree gregory 12/24 10:31> Insertion date: 09/13/16 <Sheree Bowling 09/16/16 14:29> Insertion time: 17:45 <Sheree Bowling 09/16/16 14:29> Progress Note-A&P (1) Atrial fibrillation Problem details: Paroxysmal, with RVR Status: Chronic (2) Chronic anticoagulation Status: Chronic (3) Essential (primary) hypertension Status: Chronic (4) Elevated troponin Status: Acute (5) Diastolic heart failure Problem details: Acute on chronic; ejection fraction 50-55% with pulmonary hypertension Status: Acute (6) Chronic kidney disease (CKD) Status: Chronic (7) Elevated liver function tests Status: Acute <Fausto Casey - 09/20/16 12:53> (1) Diastolic heart failure Problem details: Acute on chronic; ejection fraction 50-55% with pulmonary hypertension Status: Acute Assessment and plan: Stop Bumex as patient is not making much urine and BP has been low. Check BNP in am (2) Elevated troponin Status: Acute Assessment and plan: Trended downward (3) Atrial fibrillation Problem details: Paroxysmal, with RVR Status: Chronic Assessment and plan: BB increased for better rate control (4) Chronic anticoagulation Status: Chronic Assessment and plan: INR 3.92 today (5) Essential (primary) hypertension Status: Chronic (6) Chronic kidney disease (CKD) Status: Chronic Assessment and plan: BUN 94/ CR 1.8 today, stopped Bumex (7) Elevated liver function tests Status: Acute <Sheree Bowling - 09/17/16 10:31> - Time Spent With Patient Total time spent is greater than 50% in coordination of care (as documented) at patient's floor/unit and/or counseling patient: <Fausto Casey - 09/20/16 12:53> Total time spent is greater than 50% in coordination of care (as documented) at patient's floor/unit and/or counseling patient: <Sheree Bowling - 09/16/16 14:29> less than 15 minutes <Sheree Bowling - 09/17/16 10:31> - Attestation Attestation Narrative: Recommendation After examining the patient I agree with the above assessment. I am involved in the formulation of the patient's plan of care. <Fausto Casey - 09/20/16 12:53> Sepsis Assessment - Evaluation Sepsis screening result: Severe Sepsis Risk <Sheree Bowling 09/16/16 14:29> Hospital Course Summary Disclaimer: The visit summary below is not to be considered part of the above Progress Note. <Fausto Casey - 09/20/16 12:53> The visit summary below is not to be considered part of the above Progress Note. <Sheree Bowling - 09/16/16 14:29> Hospital Course: 09/13/16-admission Impression Hypernatremia Respiratory failure with hypoxia Elevated troponin Elevated LFTs Leukocytosis-etiology- Infection versus CLL Chronic atrial fibrillation Systolic heart failure Chronic anticoagulation Osteoporosis with chronic back pain hypertension Plan Will admit patient as a inpatient under the care of Enriqueta for hyperkalemia, elevated troponin, elevated LFTs, respiratory failure with hypoxemia Patient was treated for acute hyperkalemia in the emergency room including calcium gluconate, 1 amp of dextrose followed by 10 units of regular insulin. We will recheck a serum potassium and basic metabolic at 1800 today. Monitor patient on cardiac telemetry. Initial rate was atrial fibrillation RVR in the 130s. Patient was given Cardizem 10 milligrams IV 1 and is now in the 80s. Given elevated troponin. We will recheck serial troponins 3. Did review clinic notes from Dr. mathew. Office visit from 09/08/16 revealed that patient was on 40 of Lasix in the morning and 20 milligrams of Lasix at noon, however reconciled medications today indicate patient only takes 40 milligrams daily. Will give patient 20 grams of IV Lasix 1 now to help motivate fluid. Will reevaluate this following next chemistry panel. It appears the patient does have a history of systolic heart failure. Given increased oxygen demands. Will obtain an echocardiogram. Given hypoxia, leukocytosis and questionable infiltrate. Will cover patient with empirical antibiotics, Rocephin 1 gram IV started now. SCDs to bilateral lower extremity for DVT prophylaxis Patient does request to be a do not resuscitate and this order is written. Will discuss further orders and plan of care with attending, Dr. Robison. At time of discharge medical care will return to primary care provider, Dr. Leonidas Mathew 09/14/16 Add scheduled Lasix 20 mg IV every 8 hours as well as scheduled Duoneb tx. Continue to follow potassium and Leukocytosis. 09/15/16 ASSESSMENT Acute on chronic systolic CHF Hyperkalemia, POA - resolved Hypernatremia, POA Respiratory failure with hypoxia - non-oxygen dependent at SWV Hypotension (underlying hx of HTN) Elevated troponin, suspect secondary to CHF Uremia, underlying CKD stage III Elevated LFTs - on 07/14/16, AST was 36, ALT 34, Alk Phos 74 Smwagcfdsuav-gzdmonct-Dpbddjper versus CLL. Last WBC was 24.5 on 07/14/16. Elevated procalcitonin and elevated lactate Macrocytic anemia Chronic atrial fibrillation, on Coumadin - INR supratherapeutic CLL - sees Dr. Graham Patten Osteoporosis with chronic back pain PLAN Acute on Chronic CHF, systolic; a-fib with RVR; respiratory failure with hypoxia ; elevated BUN with underlying CKD -echo ordered. Called [facility] - she does not have a advertising manager ; no echo on record. -pt continues to be hypotensive and diuretics were discontinued on 09/15/16. Received NS 1L 09/15/16 yet BUN continues to climb. Cr. stable, slightly improved at 1.6. Reassess CMP in am. -weight is trending up, and she has poor urinary output (measured via Huerta) -suspect elevated trop is secondary to CHF rather than acute CA - EKG reviewed showing a-fib with RBBB, no acute ST segment changes. Plus, BNP was markedly elevated on admit (52K) . LFT elevation support possibility of liver congestion d/t CHF. -repeat CXR in am. -HR ranges between 80s-119 over last 48 hours. She's on metoprolol tartrate 25 mg daily. -wean oxygen as able - per Dr. Mathew's office, she was not on oxygen at [facility]. -Dr. Casey consulted; discussed with Sheree Bowling APRN -INR supratherapeutic today at 4.09 - Coumadin held. Leukocytosis, elevated lactate, elevated procalcitonin -Leukocytosis is trending down. Per Dr. Mathew's office, last WBC was 24.5 on . Oncologist is Dr. Patten. Differential shows predominance of lymphocytes, as expected with hx of CLL. -Lactate actually increased on repeat, PCT also >0.5, indicative of bacterial etiology yet no source has been identified - possible right infiltrates on CXR. -Repeat lactate and procalcitonin now and obtain blood cultures x2 (with CLL she is immunocompromised). Repeat UA (bacteruria noted on admit UA) and culture. Electrolyte abnormalities -K down to 5.0 -Na slightly high, stable at 145 -Ca++ normal Elevated TSH -suspect r/t recent illness [sick euthyroid[, but will check free T3 since she' s had fatigue and a-fib with RVR -f/u in outpt setting Macrocytic anemia -B12 and folate were both high Myopathy -consult PT/OT <Sheree Bowling - 09/16/16 14:29>
--- NOTE | 2016-09-16 14:37 | Nuclear Medicine Report ---
Indication: elevated PA pressure PROCEDURE: NM pul vent and perfuse: Encounter: Initial Comparison: None. COMPARISON: There is an earlier chest x-ray dated 09/16/2016 available for correlation. The patient breathed 6.5 mCi of Tc 99m DTPA aerosolized and a planar lung ventilation scan was obtained. The patient was given 43.9 mCi of technetium 99m macroaggregated albumen intravenously and a planar lung perfusion scan was obtained. There is extremely diffuse heterogeneous appearance of the ventilation portion of the exam which is more severe than the perfusion portion of the exam suggesting COPD. There are multiple matched defects with the largest in the left lung base. No segmental or larger mismatched defects are demonstrated. The ventilation scan findings are more prominent than the perfusion findings suggesting COPD or asthma. IMPRESSION: Innumerable matched defects much worse on the ventilation than on the perfusion suggesting emphysema. There is a low probability for pulmonary embolism. .
[2016-09-16] MEDS: CEFTRIAXONE 1 G in NS 100 ML IV SCH (16:39)
[2016-09-16] MEDS: GABAPENTIN 300 MG CAPSULE PO SCH (21:03)
[2016-09-17 00:21] VITALS: TEMP 97.6
[2016-09-17 08:08] VITALS: BP 95/47; PULSE 100; RESP 22; O2SAT 78
[2016-09-17] MEDS ORDERED: MORPHINE SULFATE 10 MG/5 ML PO PRN (08:47)
[2016-09-17] MEDS ORDERED: LORazepam INTENSOL 1mg/0.5ml ORAL LIQUID SL PRN (08:47)
--- NOTE | 2016-09-17 10:27 | Progress Note ---
<Anita Farris - Last Filed: 09/17/16 10:24> Subjective: Josefina's RN contacted me to assess Josefina - she thinks she is dying. She is only saturating in the 70s on 15L per mask. They are unable to get a BP any longer. They are unable to palpate distal pulses. She is no longer responsive. When I assessed Josefina, all of the nursing assessments were consistent. She did not respond at all. She was resting comfortably, no distress. Objective Vital signs: Temperature 97.6 F 09/17/16 00:00 Pulse Rate 100 09/17/16 03:43 Respiratory Rate 22 09/17/16 03:43 Blood Pressure 95/47 09/17/16 03:43 Pulse Oximetry 78 L 09/17/16 03:43 Oxygen Delivery Method Simple Mask Oxygen Flow Rate 15 Rhythm: Atrial Fibrillation with RVR Weight: 41.3 kg - Constitutional Present: no acute distress - Routine HEENT Exam Comments: Pupils were fixed, subtly reactive - Routine Respiratory Exam Present: decreased breath sounds, diminished air movement - Routine Cardiovascular Exam Present: S1, S2, irregularly irregular - Routine Abdominal Exam Present: soft, non distended. Absent: normoactive bowel sounds (very hypoactive ) - Routine Extremities Exam Present: cyanosis (feet, hands). Absent: pulses intact (unable to palpate DP or radial pulses), normal capillary refill (5 seconds) - Routine Musculoskeletal Exam Musculoskeletal: Present: other (unable to move; unresponsive) - Routine Skin Exam Present: mottling (feet, knee caps). Absent: warm (feet are cool to touch) - Routine Neurological Exam Patient is unresponsive. GCS 3. Results - Labs CBC & Chem 7: 09/17/16 04:28 09/17/16 04:28 Microbiology Results: Microbiology 09/15/16 16:33 Peripheral/Iv Start Blood Culture - Preliminary No Growth After 1 Day 09/15/16 16:33 Peripheral/Iv Start Blood Culture - Preliminary No Growth After 1 Day Assessment and Plan (1) Hyperkalemia Problem details: POA Status: Acute (2) Atrial fibrillation Problem details: Paroxysmal, with RVR Status: Chronic (3) Diastolic heart failure Problem details: Acute on chronic; ejection fraction 50-55% with pulmonary hypertension Status: Acute (4) Acute renal failure Problem details: Minimal urine output despite attempted diuresis; possible cardiorenal syndrome Status: Acute Resuscitation Status: Do Not Resuscitate Assessment and Plan: ASSESSMENT Acute on chronic systolic CHF Hyperkalemia, POA Hypernatremia, POA - resolved Respiratory failure with hypoxia - non-oxygen dependent at V GURPREET, underlying CKD stage III Hypotension (underlying hx of HTN) Elevated troponin, suspect secondary to CHF Elevated LFTs - on 07/14/16, AST was 36, ALT 34, Alk Phos 74 Ahotdxupdxzr-nchnlxch-Smzlyxhje versus CLL. Ceftriaxone started on 09/13/16. [ Baseline WBC 24.5 on 07/14/16.] Elevated procalcitonin and elevated lactate ?Possible infiltrate on CXR. Chronic atrial fibrillation, on Coumadin - INR supratherapeutic Diarrhea - GI panel negative Macrocytic anemia - folate and vitamin B12 were both high. Elevated TSH (mild) - free T3 ordered; f/u outpt. CLL - sees Dr. Graham Patten Osteoporosis with chronic back pain Myopathy - PT/OT ordered PLAN Labs show steep decline with GURPREET and hyperkalemia (cardiorenal syndrome). WBC also significantly increased to 105. Acute liver injury with coagulopathy even though no longer on Coumadin. Unable to capture BP, distal pulses. GCS 3. Pupils are fixed. There is mottling of the feet and kneecaps and cap refill is prolonged. Anticipate very soon - she would not survive transfer out of the hospital. Comfort care. PO meds dc'd. Ativan intensol and morphine SL PRN for air hunger/ signs of pain. DC SCDs. Sepsis Assessment - Evaluation Sepsis screening result: Severe Sepsis Risk Hospital Course Summary Disclaimer: The visit summary below is not to be considered part of the above Progress Note. Hospital Course: Hospital Course: 09/13/16-09/14/16 Hyperkalemia-calcium gluconate, 1 amp of dextrose followed by 10 units of regular insulin Hypernatremia Respiratory failure with hypoxia, Systolic heart failure - Echo ordered; Lasix 20 mg IV TID. Elevated troponin Elevated LFTs Leukocytosis-etiology- Infection versus CLL. possible infiltrate on CXR and Rocephin was started. Chronic atrial fibrillation - with RVR; Received Cardizem 10 mg IV with good response. Chronic anticoagulation Osteoporosis with chronic back pain hypertension 09/15/16 Acute on chronic systolic CHF - Dr. Casey consulted; started Bumex 2 mg IV TID and increased metoprolol to BID. Weight trending up with poor UO. Hyperkalemia, POA - resolved Hypernatremia, POA Respiratory failure with hypoxia - non-oxygen dependent at SWV Hypotension (underlying hx of HTN) Elevated troponin, suspect secondary to CHF Uremia, underlying CKD stage III Elevated LFTs - on 07/14/16, AST was 36, ALT 34, Alk Phos 74 Yiqczhncqulb-dhxifukm-Oxjyisrwl versus CLL. Last WBC was 24.5 on 07/14/16. BC ordered. Elevated procalcitonin and elevated lactate - lactate peaked at 3.0 before trending back down. Macrocytic anemia-B12 and folate were both high Chronic atrial fibrillation, on Coumadin - INR supratherapeutic & Coumadin held. CLL - sees Dr. Graham Patten Osteoporosis with chronic back pain Elevated TSH-check free T3; f/u in outpt setting Myopathy-consult PT/OT 09/16/16 Acute on chronic systolic CHF - Bumex continues Hyperkalemia, POA - increased to 5.6 Hypernatremia, POA - resolved Respiratory failure with hypoxia - non-oxygen dependent at SWV Hypotension (underlying hx of HTN) - worsening Elevated troponin, suspect secondary to CHF Uremia, underlying CKD stage III. Poor urinary output. Elevated LFTs - on 07/14/16, AST was 36, ALT 34, Alk Phos 74 Flwljuwbxtru-zcrmchvc-Grbephgdj versus CLL. Ceftriaxone started on 09/13/16. [ Baseline WBC 24.5 on 07/14/16.] Elevated procalcitonin and elevated lactate ?Possible infiltrate on CXR. Chronic atrial fibrillation, on Coumadin - INR supratherapeutic Diarrhea - GI panel negative Macrocytic anemia - folate and vitamin B12 were both high. Elevated TSH (mild) - free T3 ordered; f/u outpt. CLL - sees Dr. Graham Patten Osteoporosis with chronic back pain Myopathy - PT/OT recommending inpatient therapy.. End-of-life care discussed with patient, Dr. Valles, patient's daughter Francheska, and cardiology. Patient felt to be competent to make decisions for herself and family members have discussed patient's decisions and desire to consider hospice care and are agreeable per her daughter. Cardiology service in agreement. Anticipate hospice consultation after patient identifies agency. Blood pressure down to 69/46 late afternoon prompting 500 cc normal saline fluid bolus. 09/17/16 Labs show steep decline with GURPREET and hyperkalemia (cardiorenal syndrome). WBC also significantly increased to 105. Acute liver injury with coagulopathy even though no longer on Coumadin. Unable to capture BP, distal pulses. GCS 3. Pupils are fixed. There is mottling of the feet and kneecaps and cap refill is prolonged. Anticipate very soon - she would not survive transfer out of the hospital. Comfort care. PO meds dc'd. Ativan intensol and morphine SL PRN for air hunger/ signs of pain. DC SCDs. <VikyJessie L - Last Filed: 09/17/16 23:25> Objective Vital signs: Temperature 97.6 F 09/17/16 00:00 Pulse Rate 100 09/17/16 03:43 Respiratory Rate 22 09/17/16 03:43 Blood Pressure 95/47 09/17/16 03:43 Pulse Oximetry 78 L 09/17/16 03:43 Oxygen Delivery Method Simple Mask Oxygen Flow Rate 12 Results - Labs CBC & Chem 7: 09/17/16 04:28 09/17/16 04:28 Microbiology Results: Microbiology 09/15/16 16:33 Peripheral/Iv Start Blood Culture - Preliminary No Growth After 2 Days 09/15/16 16:33 Peripheral/Iv Start Blood Culture - Preliminary No Growth After 2 Days Assessment and Plan (1) Hyperkalemia Problem details: POA Status: Acute (2) Acute renal failure Problem details: Minimal urine output despite attempted diuresis; possible cardiorenal syndrome Status: Acute (3) Diastolic heart failure Problem details: Acute on chronic; ejection fraction 50-55% with pulmonary hypertension Status: Acute (4) Atrial fibrillation Problem details: Paroxysmal, with RVR Status: Chronic Assessment and Plan: I have independently evaluated and examined this patient. I reviewed the chart, the patient's history, and the CEMENT LOADER/PA's documented findings as above. We discussed and formulated the assessment and plan as above with additions as below: Patient shortly after Anita's visit this morning; pronounced at 9:19 AM-patient pulseless, without heart tones, and apneic. I notified the patient's granddaughter of the patient's expiration. Hospital Course Summary Disclaimer: The visit summary below is not to be considered part of the above Progress Note.
[2016-09-17] MEDS: ALBUTEROL/IPRATROPIUM 2.5mg-0.5mg/3ml NEB AEROSOL SCH (11:02)
[2016-09-17] MEDS: LACTOBACILLUS (15B cfu) CAPSULE PO SCH (11:02)
--- NOTE | 2016-09-17 11:02 | Pharmacy Consult ---
Pharmacy Consult-Warfarin - Laboratory Information 09/14/16 09/15/16 09/16/16 04:39 04:53 05:03 INR 2.98 H 4.09 H 3.92 H 09/17/16 08:30 INR 4.80 H INR continues to increase each day, inspite of holding warfarin dosing for the last two days. Will HOLD warfarin again today. Will give PHYTONADIONE (Vit K) 1mg oral today. Recheck INR in am. Thank you
[2016-09-17] MEDS ORDERED: PHYTONADIONE 1 MG/0.5 ML ORAL LIQUID PO ONE (12:00)
--- NOTE | 2016-09-18 00:32 | Discharge Summary ---
Discharge Summary- Blank Discharge Summary: Cause of : Acute renal failure/cardiorenal syndrome due to acute/chronic diastolic heart failure Contributing causes: CLL Chronic atrial fibrillation Hypertension Mrs. Horowitz is an 85-year-old female who was hospitalized 09/13/16-09/17/16 with acute on chronic heart failure complicated by acute kidney injury, hyperkalemia, and abnormal liver enzymes attributed to poor perfusion. BNP was 52,000 on admission and 158,000 shortly before . The patient was seen in consultation by Dr. Casey for assistance managing cardiac disease. Hyperkalemia was treated with calcium gluconate, IV dextrose, and insulin in addition to diuretics for combined management of heart failure and hyperkalemia. Atrial fibrillation required IV cardiac exam for rate control. Due to renal failure the patient did not diurese with Lasix and was converted to Bumex but renal failure continued to worsen with virtual anuria developing. The patient asked that care focus on comfort only; family members concurred and it was agreed that the patient was competent to make this decision. Patient was not interested in interventions but appeared to be needed if her life was to be prolonged given developing anuria and worsening renal failure. Hospice was to be consulted on the morning of 09/17 but the patient's status declined significantly prior to consultation with development of mottling, significant impairment in metal status, and further respiratory depression. Comfort medications were initiated. The patient with caregivers at bedside on the morning of 09/17. Time of 09.
== END 2016-09-17 09:19 | disposition expired | DRG 291 ==
LOC: ED 12:35 → MED 15:13
PROVIDERS: ADMIT Hospitalist; ATTEND Internal Medicine